=== PATIENT | male | born 1955 | race Caucasian/White ===

== ENCOUNTER → 2017-04-24 | Outpatient (CLI) | payer OTHER ==
[~2017-04-24] MED LIST: ACET500T68 PO; ALLO-2 PO; AMOX-362 PO; ASPI-1471 PO; BACL-1 PO; HYDR-4309 PO; IBUP-56 PO; LEVO-85 PO; LOR1 PO; MULT1TAB64 PO; OMEG-23 PO; ONDA8TAB94 PO; OXYC-865 PO; PEGFILGRASTIM 6 MG/0.6 ML SYR SUBQ ONE; PRED20TA6 PO; PROC10TA4 PO
[2017-04-24 14:59] VITALS: BP 133/88
== END ==
LOC: SPU 07:40
PROVIDERS: ATTEND Internal Medicine Hematology
DX: C83.10 Mantle cell lymphoma, unspecified site (principal)
CPT/HCPCS: 96372; J2505

== ENCOUNTER → 2017-05-12 | Outpatient (CLI) | payer OTHER ==
[~2017-05-12] MED LIST changes: +PEGFILGRASTIM 6 MG/0.6 ML KIT SUBQ ONE; -PEGFILGRASTIM 6 MG/0.6 ML SYR SUBQ ONE
== END ==
LOC: SPU 09:13
PROVIDERS: ATTEND Internal Medicine Hematology
DX: C83.10 Mantle cell lymphoma, unspecified site (principal)
CPT/HCPCS: 96372; J2505

== ENCOUNTER 2017-06-19 08:00 | Outpatient (RCR) | payer OTHER ==
[2017-03-30 15:27] VITALS: BP 107/72
--- NOTE | 2017-03-30 17:13 | ONC Progress Note - NP.Halsey ---
Patient History Date of Service Mar 30, 2017 Reason For Visit/HPI Patient is seen in the clinic today with his for education with R-Chop given every 42 days 3 cycles followed by Patrica with each cycle for his newly diagnosed mantle cell lymphoma. Patient will also receive inpatient chemotherapy on day 21 over in [place] 3 cycles. Patient then will go for a stem cell transplant. advisory services associate is seen with us today as well to answer many questions. Patient verbalized understanding. He reports that other then the surgery for his tonsils and the port placement he has no pain. He denies any night sweats or hot flashes, no fever or chills, no change in bowel or bladder function. He does have some increased fatigue. Oncology History Diego is 61 year old gentleman, with no significant past medical history, who noticed difficulty taking in a full breath about 1-2 weeks prior to presentation. On examination of himself, he looked into his mouth and noticed that his right tonsil was significantly enlarged. He presented to his PCP, and was subsequently referred to Dr James Alaniz (ENT) for further evaluation. CT neck was done on 02/24/2017 which showed enlargement of both palatine tonsils, right more than left and numerous, enlarged lymph nodes in the neck bilaterally , largest nodes included a left level VB node measuring 2.0 x 1.4 cm, a right level VB node measuring 1.7 x 1.7 cm, and a right level IIA node measuring 2.5 x 1.0 cm; bilateral axillary lymphadenopathy was also noted. He was taken to OR on 03/02/2017 and had bilateral tonsillectomy done. Final pathology revealed Mantle cell lymphoma in both tonsils, CD20+, cyclin D1+, BCL2+,CD5+, Ki67 20-30% . CD10-, BCL6-. He was subsequently referred to Medical Oncology for further management. Patient consult with Dr. hinojosa on 03/12/2017 to discuss diagnosis, staging, natural history of disease being incurable but certainly treatable, treatment options to include chemotherapy and stem cell transplant. Patient had echocardiogram and hepatitis studies completed prior. Echocardiogram was at 63% left ventricular ejection fraction. Hepatitis studies were negative. Port-A- Cath was placed. Medical History Family History: Patient reports no known family medical history. 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 CHEWS A CAN PER WEEK FOR 7 YEARS) Smoking Status: Former Smoker Exposure to Second Hand Smoke?: No When Quit Tobacco?: March 2016 Medications and Allergies Active Scripts Allopurinol (Allopurinol) 300 Mg Tablet, 300 MG PO DAILY, #30 TAB 9 Refills Prov:[facility], ONC 03/30/17 Lorazepam (LORAZEPAM) 1 Mg Tab, 1 TAB PO Q4-6H Y for nausea, #30 TAB 1 Refill Prov:CELESTE MCCLELLAN [facility]-, ONC 03/30/17 Ondansetron (ZOFRAN ODT) 8 Mg Tab.rapdis, 8 MG PO Q8H, #30 TAB 2 Refills Prov:CELESTE MCCLELLAN [facility]-, ONC 03/30/17 Prednisone (PREDNISONE) 20 Mg Tablet, 100 MG PO QDAY for 5 Days, #25 TAB 2 Refills Take 100mg orally on days 1-5 every 42 day cycle of chemotherapy Prov:CELESTE MCCLELLAN [facility]-, ONC 03/30/17 Hydrocodone Bit/Acetaminophen (NORCO 5-325 TABLET) 1 Each Tablet, 1 EACH PO Q4H Y for PAIN, #30 TAB Prov:KAYE PUENTES MD 03/17/17 Reported Medications Ibuprofen (IBUPROFEN) 200 Mg Tablet, 1 TAB PO Q6H Y for PAIN/HEADACHE, TAB 03/13/17 Multivitamin (MULTI VITAMIN DAILY) 1 Each Tablet, 1 EACH PO DAILY 03/12/17 Aspirin (ASPIR 81) 81 Mg Tablet.dr, 81 MG PO QDAY, TAB 03/12/17 [place]-3 Fatty Acids/Fish Oil (FISH OIL 1,000 MG SOFTGEL) 1 Each Capsule, 1 EACH PO TID, CAPSULE 03/12/17 Allergies: Coded Allergies: No Known Drug Allergies (Unverified , 02/24/17) Review of System/Physical Exam Review of Systems All Systems Reviewed/Normal: Yes, Except as Noted Hematologic: Positive for Fatigue Physical Exam Vital Signs Temperature: 98.6 Pulse: 78 BP Systolic: 107 BP Diastolic: 72 Respiratory Rate: 16 O2 SAT: 93 O2 Delivery: Height (inches) 71.00 Weight lb: 169 Weight oz: Weight Kg (Leon): Pain: 0 ECOG Score: 0 General: Stable, Well Developed, Well Nourished, Not In Acute Distress Psychiatric: Mood appears normal, Affect appears normal Chemo Education Chemotherapy Education: Patient is seen today for education regarding chemotherapy with R-Chop for his newly diagnosed mantle cell lymphoma. The treatment schedule and associated appointments were discussed and reviewed. A print out will be given to the patient. The intent for treatment is incurable although disease should be maintained. Consent for treatment was completed prior to receiving treatment. Mechanism of action and associated side effects of Rituxan, Adriamycin, Cytoxan , vincristine, and prednisone as well as premedications were discussed. The patient is at increased risk for infection related to bone marrow suppression with chemotherapy. Signs and symptoms of infection were reviewed with recommendation of calling the clinic if fever, chills or a temperature of 100.5 or greater is experienced. Regular monitoring of blood work will be completed. The patient is at increased risk of nausea and vomiting related to chemotherapy. Home antiemetics were reviewed with a schedule of when to take them. Script (s) for Zofran, prednisone, Ativan and allopurinol to [facility].. Increased bowel movements or diarrhea may occur. The use of Imodium was reviewed and encouraged to have on hand. Dehydration from decreased intake, nausea or diarrhea could also occur. Side effects of dehydration were reviewed and hydration will be given as needed. Self-care strategies to minimize any symptoms from treatment were taught and written material was given for further review at home. The strategies included: dietary modifications for nausea, diarrhea, fatigue and/or mouth sores, exercise and resting for fatigue, hydration for dehydration, and skin care for dry skin reactions. In addition, safety measures for IV chemotherapy to prevent teratogenic side effects to others was reviewed in detail to include good hand washing, double flushing, and what to do during sexual intercourse. Patient has been referred to physical therapy and dietary The above information will be reviewed with the patient and family members as needed. Assessment and Plan Assessment & Plan Mantle cell lymphoma: Patient completed education today by her to starting treatment with R CHOP tomorrow. Diagnosis, staging, natural history of disease, treatment with chemotherapy and stem cell transplant were reviewed today. Side effects of chemotherapy were reviewed and education book with all written material was given to patient for further review. A consent was signed consenting for treatment tomorrow. Prednisone 100 mg will be taken on days 1 through 5 with each cycle of chemotherapy. Patient also was also started on allopurinol 300 mg for tumor lysis prevention. Review of echocardiogram and hepatitis panel were completed today. Hepatitis panel is negative. Echocardiogram baseline is at 63% for left ventricular ejection fraction. Patient has met with Dr. [facility] at [facility] for initial consultation for autologous stem cell transplant. Patient will also receive inpatient chemotherapy starting on day 21 over in [place] directed by Dr. Luke. All questions were answered. Patient will be seen with each chemotherapy treatment. Labs will be drawn weekly according to chemotherapy schedule. Patient will contact us if he has questions or concerns. Home medications were [facility] in to [facility]. I personally spent a total of 45 minutes. Of that 40 minutes was counseling/ coordination of patient's care. See my note above for details. CELESTE MCCLELLAN [employer], ONC Mar 30, 2017 17:13
[2017-03-31 08:28] VITALS: BP 113/74
[2017-03-31] MEDS: PALONOSETRON 0.25 MG/5 ML VIAL IVP PRN (08:54)
[2017-03-31] MEDS: diphenhydrAMINE 50 MG/ML VIAL IVP PRN (08:55)
[2017-03-31] MEDS: NS(*) 0.9% 500 ML BAG 500 ML IV PRN (08:55)
[2017-03-31] MEDS: LIDOCAINE/SOD BICARB 8.4% SYR ID PRN (08:55)
[2017-03-31] MEDS: HEPARIN FLSH (PORT) 500 UN/5ML IVP PRN ×2 (08:56→16:16)
[2017-03-31] MEDS: ACETAMINOPHEN 325 MG TAB PO PRN (08:56)
[2017-03-31 16:11] VITALS: BP 117/70
[2017-04-07 11:10] LABS: PLATELET COUNT, AUTOMATED 166 K/uL (150-450)
--- NOTE | 2017-04-07 11:34 | ONC Progress Note - NP.Halsey ---
Patient History Date of Service Apr 07, 2017 Reason For Visit/HPI Patient is seen in the clinic today with his for lab draw status post cycle 1 of chemotherapy for his lymphoma with R-CHOP. Patient reports that he is having weakness and fatigue, bone aches in the lower extremities and tightness of the chest with voice changes, cough and a feeling of shortness of breath. Patient believes that symptoms started as soon as chemotherapy started and has increased over the last several days. With the steroids he feels that he has not been able to sleep well at night which is exacerbated his fatigue. He did take a pain pill last night and was able to sleep at least 4 hours at one time. Problem List (1) Chest tightness or pressure (2) Mantle cell lymphoma Oncology History Diego is 61 year old gentleman, with no significant past medical history, who noticed difficulty taking in a full breath about 1-2 weeks prior to presentation. On examination of himself, he looked into his mouth and noticed that his right tonsil was significantly enlarged. He presented to his PCP, and was subsequently referred to Dr James Alaniz (ENT) for further evaluation. CT neck was done on 02/24/2017 which showed enlargement of both palatine tonsils, right more than left and numerous, enlarged lymph nodes in the neck bilaterally , largest nodes included a left level VB node measuring 2.0 x 1.4 cm, a right level VB node measuring 1.7 x 1.7 cm, and a right level IIA node measuring 2.5 x 1.0 cm; bilateral axillary lymphadenopathy was also noted. He was taken to OR on 03/02/2017 and had bilateral tonsillectomy done. Final pathology revealed Mantle cell lymphoma in both tonsils, CD20+, cyclin D1+, BCL2+,CD5+, Ki67 20-30% . CD10-, BCL6-. He was subsequently referred to Medical Oncology for further management. Patient consult with Dr. hinojosa on 03/12/2017 to discuss diagnosis, staging, natural history of disease being incurable but certainly treatable, treatment options to include chemotherapy and stem cell transplant. Patient had echocardiogram and hepatitis studies completed prior. Echocardiogram was at 63% left ventricular ejection fraction. Hepatitis studies were negative. Port-A- Cath was placed. Medical History Family History: Patient reports no known family medical history. 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 Alcohol History He may drink a beer every 2-3 months Recreational Drug History He denies use Smoking History: No Smoking Status: Former Smoker Exposure to Second Hand Smoke?: No When Quit Tobacco?: March 2016 Medications and Allergies Active Scripts Levofloxacin 500 Mg Tab (LEVAQUIN 500 MG TAB) 500 Mg Tablet, 500 MG PO DAILY for 5 Days, #5 TAB Prov:CELESTE MCCLELLAN [facility]-, ONC 04/07/17 Allopurinol (Allopurinol) 300 Mg Tablet, 300 MG PO DAILY, #30 TAB 9 Refills Prov:CELESTE MCCLELLAN [facility]-, ONC 03/30/17 Lorazepam (LORAZEPAM) 1 Mg Tab, 1 TAB PO Q4-6H Y for nausea, #30 TAB 1 Refill Prov:CELESTE MCCLELLAN [facility], ONC 03/30/17 Ondansetron (ZOFRAN ODT) 8 Mg Tab.rapdis, 8 MG PO Q8H, #30 TAB 2 Refills Prov:CELESTE MCCLELLAN [facility], ONC 03/30/17 Prednisone (PREDNISONE) 20 Mg Tablet, 100 MG PO QDAY for 5 Days, #25 TAB 2 Refills Take 100mg orally on days 1-5 every 42 day cycle of chemotherapy Prov:CELESTE MCCLELLAN [facility], ONC 03/30/17 Hydrocodone Bit/Acetaminophen (NORCO 5-325 TABLET) 1 Each Tablet, 1 EACH PO Q4H Y for PAIN, #30 TAB Prov:KAYE PUENTES MD 03/17/17 Reported Medications Ibuprofen (IBUPROFEN) 200 Mg Tablet, 1 TAB PO Q6H Y for PAIN/HEADACHE, TAB 03/13/17 Multivitamin (MULTI VITAMIN DAILY) 1 Each Tablet, 1 EACH PO DAILY 03/12/17 Aspirin (ASPIR 81) 81 Mg Tablet.dr, 81 MG PO QDAY, TAB 03/12/17 [place]-3 Fatty Acids/Fish Oil (FISH OIL 1,000 MG SOFTGEL) 1 Each Capsule, 1 EACH PO TID, CAPSULE 03/12/17 Allergies: Coded Allergies: No Known Drug Allergies (Unverified , 02/24/17) Review of System/Physical Exam Review of Systems All Systems Reviewed/Normal: Yes, Except as Noted Respiratory: Positive for Shortness of Breath, Positive for Other HEENT: Sore Throat (rote discomfort status post tonsillectomy) Hematologic: Positive for Fatigue Musculoskeletal: Positive for Bone Pain (lower extremity bone pain probably related to Neulasta) Psychiatric: Anxiety, Depression Physical Exam Vital Signs Temperature: 97.6 Pulse: 81 BP Systolic: 117 BP Diastolic: 70 Respiratory Rate: 16 O2 SAT: 93 O2 Delivery: Height (inches) 71.00 Weight lb: 169 Weight oz: Weight Kg (Leon): Pain: 0 ECOG Score: 1 ( increased fatigue) General: Stable, Well Developed, Well Nourished, Not In Acute Distress HEENT: No Oral Thrush Lungs: Clear to Auscultation Psychiatric: Mood appears normal, Affect appears normal (patient is stressed and it is apparent that he does not feel well. His is with him today and is very supportive) Diagnostic Studies Diagnostic Studies Laboratory Absolute neutrophil count is calculated at 532. Patient has Neulasta status post chemotherapy. Item Value Date Time White Blood Count 1.4 k/uL *L 04/07/17 1103 Hemoglobin 13.5 g/dL L 04/07/17 1103 Hematocrit 39.3 % L 04/07/17 1103 Neutrophils % (Manual) 31 % L 04/07/17 1103 Band Neutrophils % 7 % 04/07/17 1103 Sodium Level 136 mmol/L L 04/07/17 1103 Random Glucose 134 mg/dl H 04/07/17 1103 Laboratory Tests 03/31/17 08:15: Phosphorus Level 3.8 04/07/17 11:03: Assessment and Plan Assessment & Plan Mantle cell lymphoma: Patient completed education today by her to starting treatment with R CHOP tomorrow. Diagnosis, staging, natural history of disease, treatment with chemotherapy and stem cell transplant were reviewed today. Side effects of chemotherapy were reviewed and education book with all written material was given to patient for further review. A consent was signed consenting for treatment tomorrow. Prednisone 100 mg will be taken on days 1 through 5 with each cycle of chemotherapy. Patient also was also started on allopurinol 300 mg for tumor lysis prevention. Review of echocardiogram and hepatitis panel were completed today. Hepatitis panel is negative. Echocardiogram baseline is at 63% for left ventricular ejection fraction. Patient has met with Dr. Johnson at [facility] for initial consultation for autologous stem cell transplant. Patient will also receive inpatient chemotherapy starting on day 21 over in [place] directed by Dr. Luke. Patient is seen today in the clinic status post lab draw with concern of increased shortness of breath and voice changes. Patient is also having expected side effects of own aches from Neulasta therapy and increased fatigue. Chest x-ray PA and lateral was ordered for further evaluation. Chest x-ray is positive for small bilateral pleural effusions which appear increased when compared to previous CT scan. Patient will be called with results. Absolute neutrophil count is 532 today. Neulasta should raise this white count in the next several days. Patient has completed oral steroid status post treatment and denies any nausea today. I will treat patient prophylactically with Levaquin 500 mg 5 days. Patient will call if his symptoms do not improve as I could also start him on a nebulizer treatment. He agreed with this plan of care and will avoid crowds and practice good hand washing. He will call if he develops fever or chills. Patient to follow as scheduled with chemotherapy on day [address] [place] [address] Luke. I personally spent a total of 20 minutes. Of that 20 minutes was counseling/ coordination of patient's care. See my note above for details. CELESTE MCCLELLAN [employer]-BC, ONC Apr 07, 2017 11:34
--- NOTE | 2017-04-07 12:05 | RADIOLOGY IMAGING REPORT ---
FACILITY: [facility] [place] PATIENT NAME: Houston Thurman : 1955 MR: [id number] V: [id number] EXAM DATE: ORDERING PHYSICIAN: CELESTE MCCLELLAN TECHNOLOGIST: Location: [facility] Patient: Houston Thurman : 1955 Visit/Account:[id number] Date of Sevice: 04/07/2017 Exam type: CHEST PA AND LAT History: Lymphoma, shortness of breath, chest pain x2 days Comparison: Chest PA and lateral June 02, [address] chest seven pelvis March 11, 2017 Findings: There has been development of small bilateral pleural effusions. These appear slightly increased whe n compared to the prior CT. No underlying airspace consolidation is seen. There is an increased AP diameter the chest which can be seen with COPD. Cardiac silhouette is normal in size. The trachea is midline. A right IJ port with the distal tip projecting at the aortocaval junction.. IMPRESSION: 1. Small bilateral pleural effusions slightly increased when compared the prior study A message was left for CELESTE MCCLELLAN at 04/07/2017 11:59 AM. Report Dictated By: Deborah Chaidez MD at 04/07/2017 11:56 AM Report E-Signed By: Deborah Chaidez MD at 04/07/2017 12:00 PM WSN:[email or web address]
[2017-04-10 15:35] VITALS: BP 108/67
[2017-04-14 11:09] LABS: PLATELET COUNT, AUTOMATED 187 K/uL (150-450)
--- NOTE | 2017-04-19 05:16 | ONCOLOGY FOLLOW UP NOTE ---
EVENT DATE: April 10, 2017 DIAGNOSES Mantle cell lymphoma lymph nodes of multiple regions CHIEF COMPLAINT Patient is here today for followup of his mantle cell lymphoma on chemotherapy. HEMATOLOGY/ONCOLOGY HISTORY Patient is a 61 year old male who presented with difficulty talking in a full breath and found enlargement of his right tonsil. CT neck on 02/24/17 showed enlargement both palatine tonsils R> L with nuerous enlarged neck LNs B/L with B/L axillary LNs noted. He had B/L tonsillectomy done on 03/02/17 and pathology mantle cell lyphoma involving both tonsils. His echocardiogram showed normal LVEF at 63%. BM aspiration and biopsy done on 03/17/17 was involved by MCL (approximately 40% of cells). PET?CT scan done on 03/24/17 showed mild diffuse lymphadenopathy in the neck, chest, abdomen and pelvis with mild thyromegaly and uptake at the base of the penis. Patient has been evaluated by Dr. Johnson at [facility] with recommendation of alternating chemotherapy with R-CHOP with R-DHAP chemotherapy with intrathecal prophylaxis chemotherapy. Patient started treatment with R-CHOP on March 31, 2017. PAST MEDICAL HISTORY Lymphoma. mantel cell multiple sites Malignant neoplasm PAST SURGICAL HISTORY Mediport placement Orife elbow fracture Orif tibia & fibula fractures Tonsillectomy FAMILY HISTORY The patients father, paternal aunt and maternal grandfather have a history of cancer. SOCIAL HISTORY Patient is , has three children and grandchildren. 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 He drinks a beer every two to three months. Denies any abuse of illicit drugs. He smoked one pack per week for 30 years, and chewed a can per week for seven years, but he quit tobacco in March 2016. CURRENT MEDICATIONS 1. Allopurinol 300 mg daily. 2. Lorazepam 1 mg q.4-6 hourly p.r.n. for anxiety or nausea and vomiting. 3. Zofran 8 mg p.o. q.8 hourly p.r.n. for nausea and vomiting. 4. [place] 5/325 one tablet q.4 hourly p.r.n. for pain. 5. Multivitamin s. 6. Aspirin 81 mg daily. 7. [place]-3 fatty acids/fish oil, one capsule three times daily. ALLERGIES No known drug allergies. HISTORY OF PRESENT ILLNESS Patient is here today for followup of his mantle cell lymphoma on chemotherapy. He received his first chemotherapy with R-CHOP on March 31, 2017. He is complaining of occasional headache and he has epigastric discomfort since he started his chemotherapy, which is related most probably to his high dose prednisone. REVIEW OF SYSTEMS CONSTITUTIONAL: No appetite or weight change. No fever, chills or sweating. No recent infection. HEENT: Ears: No tinnitus or hearing problem. Nose: No nasal discharge or epistaxis. Throat: No sore throat or mouth ulcers. Eyes: No diplopia or visual changes. RESPIRATORY: No shortness of breath. No cough, expectoration or hemoptysis. CARDIOVASCULAR: No chest pain, orthopnea, or paroxysmal nocturnal dyspnea (PND) . No edema. No palpitations. GASTROINTESTINAL: Patient has epigastric discomfort and pain. He has also constipation. GENITOURINARY: No hematuria or dysuria. MUSCULOSKELETAL: No pain in the muscles, joints or bones. NEUROLOGICAL: He has occasional headache. HEMATOLOGIC/LYMPHATIC: No bleeding or easy bruising. No weakness or fatigue. No enlarged lymph nodes. SKIN: No skin rash or lumps. PSYCHIATRIC: No anxiety or depression. PHYSICAL EXAMINATION GENERAL: Looks stable. Well-developed, well-nourished, and in no acute distress. VITAL SIGNS: Blood pressure 103/67, pulse 90 per minute, temperature 99.7, pulse ox 92% on room air. HEENT: Head: Atraumatic. No sinus tenderness to palpation. Eyes: No icterus or conjunctivitis. Mouth and throat: No oral thrush or mucositis. NECK: There are palpable some posterior cervical lymph nodes the size of 1.5 cm bilaterally on the neck. Supple. No cervical or supraclavicular lymphadenopathy. LUNGS: Clear to auscultation and percussion bilaterally. HEART: Regular rate and rhythm. No gallops, murmurs, clicks or rubs. ABDOMEN: Soft and lax. No tenderness. No hepatosplenomegaly. No masses. EXTREMITIES: No cyanosis, clubbing or edema. LYMPHATICS: No peripheral lymphadenopathy. NEUROLOGICAL: Conscious, alert and oriented times three. No focal motor or sensory deficits. PSYCHIATRIC: Mood and affect appear normal. SKIN: No skin rash, bruise or purpuric eruption. ASSESSMENT 1. Mantle cell lymphoma. Patient has been evaluated at [facility]. The recommendation is to treat him with four cycles of R-CHOP alternating with R-DHAP, and he will have stem cell collection after that. He saw Dr. Johnson. He started chemotherapy with R-CHOP on March 31, 2017. He tolerated the first dose very well, except for having leukopenia with neutropenia from that. At the [facility] they recommended intrathecal prophylaxis for central nervous system lymphoma, and the patient refused intrathecal route. I talked to him today about the Ommaya reservoir, and the patient looks like he is not keen to do that. I am planning to admit him to the hospital in [place] on April 21 to start his second cycle with DHAP with cisplatin and high dose Katlyn-C. I talked to them about the plan of the treatment and the patient is agreeable with such plan. 2. Chemotherapy-induced leukopenia and neutropenia. Patient received already Neulasta. The patient was advised about neutropenic precautions. We will continue to monitor. PLAN 1. Admission to [facility] on April 21, 2017 for treatment with second cycle of R-DHAP. 2. Protonix 40 mg daily. 3. CBC, chem panel and uric acid weekly. 4. Neulasta 6 mg subcutaneously after the next cycle of chemotherapy on April 24, 2017. 5. Patient to return in three weeks after the next cycle of chemotherapy with CBC, chem panel, LDH, uric acid prior to his third cycle with R-CHOP. 6. Patient is to contact us for any new concerns or complaints. MTDD
[2017-04-28 11:09] LABS: PLATELET COUNT, AUTOMATED 138 K/uL (150-450)
[2017-04-28] MEDS: HEPARIN FLSH (PORT) 500 UN/5ML IVP PRN ×2 (13:09→14:31)
[2017-04-28] MEDS: LIDOCAINE/SOD BICARB 8.4% SYR ID PRN (13:09)
[2017-04-28] MEDS: NS(*) 0.9% 1000 ML BAG 1,000 ML IV PRN (13:09)
[2017-04-28 13:15] VITALS: BP 118/83
[2017-04-28 14:36] VITALS: BP 122/76
[2017-04-29] MEDS: NS(*) 0.9% 1000 ML BAG 1,000 ML IV PRN (13:31)
[2017-04-29 13:43] VITALS: BP 152/85
[2017-04-29] MEDS: LIDOCAINE/SOD BICARB 8.4% SYR ID PRN (13:52)
[2017-04-29] MEDS: HEPARIN FLSH (PORT) 500 UN/5ML IVP PRN (13:52)
[2017-04-30] MEDS: NS(*) 0.9% 1000 ML BAG 1,000 ML IV PRN (13:12)
[2017-04-30] MEDS: HEPARIN FLSH (PORT) 500 UN/5ML IVP PRN (13:12)
[2017-04-30] MEDS: LIDOCAINE/SOD BICARB 8.4% SYR ID PRN (13:12)
[2017-04-30 14:47] VITALS: BP 147/85
[2017-05-01 13:06] VITALS: BP 120/81
[2017-05-01 13:45] LABS: PLATELET COUNT, AUTOMATED 42 K/uL (150-450)
[2017-05-07] MEDS: NS 0.9% IV PRN ×2 (10:32→11:58)
[2017-05-07] MEDS: HEPARIN FLSH (PORT) 500 UN/5ML IVP PRN (10:33)
[2017-05-07] MEDS: LIDOCAINE/SOD BICARB 8.4% SYR ID PRN (10:33)
[2017-05-07 10:34] VITALS: BP 116/88
[2017-05-09] MEDS: HEPARIN FLSH (PORT) 500 UN/5ML IVP PRN (08:06)
[2017-05-09] MEDS: LIDOCAINE/SOD BICARB 8.4% SYR ID PRN (08:06)
[2017-05-09] MEDS: NS 0.9% IV PRN (08:06)
[2017-05-10] MEDS: HEPARIN FLSH (PORT) 500 UN/5ML IVP PRN (08:21)
[2017-05-10] MEDS: NS 0.9% IV PRN (08:22)
[2017-05-10] MEDS: LIDOCAINE/SOD BICARB 8.4% SYR ID PRN (08:22)
[2017-05-11 12:51] VITALS: BP 133/77
[2017-05-11] MEDS: LIDOCAINE/SOD BICARB 8.4% SYR ID PRN (12:54)
[2017-05-12 08:20] VITALS: BP 121/75
[2017-05-12] MEDS: diphenhydrAMINE 50 MG/ML VIAL IVP PRN (08:59)
[2017-05-12] MEDS: PALONOSETRON 0.25 MG/5 ML VIAL IVP PRN (08:59)
[2017-05-12] MEDS: HEPARIN FLSH (PORT) 500 UN/5ML IVP PRN (09:00)
[2017-05-12] MEDS: NS(*) 0.9% 500 ML BAG 500 ML IV PRN (09:00)
[2017-05-12] MEDS: ACETAMINOPHEN 325 MG TAB PO PRN (09:00)
[2017-05-13] MEDS: NS(*) 0.9% 1000 ML BAG 1,000 ML IV PRN (11:01)
[2017-05-13] MEDS: HEPARIN FLSH (PORT) 500 UN/5ML IVP PRN (11:03)
[2017-05-13 11:28] VITALS: BP 122/83
[2017-05-14] MEDS: NS(*) 0.9% 1000 ML BAG 1,000 ML IV PRN (11:05)
[2017-05-14] MEDS: LIDOCAINE/SOD BICARB 8.4% SYR ID PRN (11:05)
[2017-05-14 11:06] VITALS: BP 135/80
[2017-05-15] MEDS: NS(*) 0.9% 1000 ML BAG 1,000 ML IV PRN (11:03)
[2017-05-15] MEDS: HEPARIN FLSH (PORT) 500 UN/5ML IVP PRN (11:03)
[2017-05-16] MEDS: NS(*) 0.9% 1000 ML BAG 1,000 ML IV PRN (08:30)
[2017-05-16 08:31] VITALS: BP 147/87
[2017-05-16] MEDS: HEPARIN FLSH (PORT) 500 UN/5ML IVP PRN (08:31)
--- NOTE | 2017-05-16 16:35 | ONCOLOGY FOLLOW UP NOTE ---
EVENT DATE: May 15, 2017 DIAGNOSES Mantle cell lymphoma lymph nodes of multiple regions CHIEF COMPLAINT Patient is here today for followup of his mantle cell lymphoma on chemotherapy. HEMATOLOGY HISTORY Patient is a 61 year old male who presented with difficulty talking in a full breath and found enlargement of his right tonsil. CT neck on 02/24/17 showed enlargement both palatine tonsils R> L with nuerous enlarged neck LNs B/L with B/L axillary LNs noted. He had B/L tonsillectomy done on 03/02/17 and pathology mantle cell lyphoma involving both tonsils. His echocardiogram showed normal LVEF at 63%. BM aspiration and biopsy done on 03/17/17 was involved by MCL (approximately 40% of cells). PET?CT scan done on 03/24/17 showed mild diffuse lymphadenopathy in the neck, chest, abdomen and pelvis with mild thyromegaly and uptake at the base of the penis. Patient has been evaluated by Dr. Johnson at [facility] with recommendation of alternating chemotherapy with R-CHOP with R-DHAP chemotherapy with intrathecal prophylaxis chemotherapy. Patient started treatment with R-CHOP on March 31, 2017. HISTORY OF PRESENT ILLNESS Patient is here today for followup of his mantle cell lymphoma on chemotherapy pending autologous stem cell transplant. He is doing fine currently. He is complaining of constipation, but it is under control with the stool softeners currently. He is weak, tired and fatigued, but other than that he is really doing fine currently. He is receiving IV fluids nearly on a daily basis for his acute kidney injury from his cisplatin therapy. PAST MEDICAL HISTORY Lymphoma. mantel cell multiple sites Malignant neoplasm PAST SURGICAL HISTORY Mediport placement Orife elbow fracture Orif tibia & fibula fractures Tonsillectomy FAMILY HISTORY The patients father, paternal aunt and maternal grandfather have a history of cancer. SOCIAL HISTORY Patient is , has three children and grandchildren. 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 He drinks a beer every two to three months. Denies any abuse of illicit drugs. He smoked one pack per week for 30 years, and chewed a can per week for seven years, but he quit tobacco in March 2016. CURRENT MEDICATIONS 1. Allopurinol 300 mg daily. 2. Lorazepam 1 mg q.4-6 hourly p.r.n. for anxiety or nausea and vomiting. 3. Zofran 8 mg p.o. q.8 hourly p.r.n. for nausea and vomiting. 4. [place] 5/325 one tablet q.4 hourly p.r.n. for pain. 5. Multivitamin s. 6. Aspirin 81 mg daily. 7. [place]-3 fatty acids/fish oil, one capsule three times daily. ALLERGIES No known drug allergies. REVIEW OF SYSTEMS CONSTITUTIONAL: No appetite or weight change. No fever, chills or sweating. No recent infection. HEENT: Ears: No tinnitus or hearing problem. Nose: No nasal discharge or epistaxis. Throat: No sore throat or mouth ulcers. Eyes: No diplopia or visual changes. RESPIRATORY: No shortness of breath. No cough, expectoration or hemoptysis. CARDIOVASCULAR: No chest pain, orthopnea, or paroxysmal nocturnal dyspnea (PND) . No edema. No palpitations. GASTROINTESTINAL: Patient has constipation, under control with stool softeners. GENITOURINARY: No hematuria or dysuria. MUSCULOSKELETAL: No pain in the muscles, joints or bones. NEUROLOGICAL: He has occasional headache. HEMATOLOGIC/LYMPHATIC: He is weak, tired and fatigued. SKIN: No skin rash or lumps. PSYCHIATRIC: No anxiety or depression. PHYSICAL EXAMINATION GENERAL: Looks stable. Well-developed, well-nourished, and in no acute distress. VITAL SIGNS: Blood pressure 124/75, pulse 79 per minute, temperature 96.6, pulse ox 93% on room air. HEENT: Head: Atraumatic. No sinus tenderness to palpation. Eyes: No icterus or conjunctivitis. Mouth and throat: No oral thrush or mucositis. NECK: There are small palpable posterior cervical lymph nodes about 1 cm bilaterally on the neck. Supple. No cervical or supraclavicular lymphadenopathy. LUNGS: Clear to auscultation and percussion bilaterally. HEART: Regular rate and rhythm. No gallops, murmurs, clicks or rubs. ABDOMEN: Soft and lax. No tenderness. No hepatosplenomegaly. No masses. EXTREMITIES: No cyanosis, clubbing or edema. LYMPHATICS: No peripheral lymphadenopathy. NEUROLOGICAL: Conscious, alert and oriented times three. No focal motor or sensory deficits. PSYCHIATRIC: Mood and affect appear normal. SKIN: No skin rash, bruise or purpuric eruption. DIAGNOSTIC DATA CBC showed white count 9.2, hemoglobin 11.3, hematocrit 32.3, platelets 436, 000. Chem panel totally normal except BUN 31, creatine 1.7, blood sugar 130, calcium 8.3. Other parameters are normal. ASSESSMENT 1. Mantle cell lymphoma. Patient has been evaluated at [facility]. The recommendation is to treat him with four cycles of R-CHOP alternating with R-DHAP, and he will have stem cell collection after that. Patient has been seen by Dr. Johnson. He started chemotherapy with R-CHOP on March 31, 2017 and he tolerated treatment very well. He received his second cycle with DHAP regimen and he developed acute kidney injury with creatine 5 after that cycle of chemotherapy. He is currently on IV fluids nearly on a daily basis and he was admitted with the acute kidney injury and his current creatinine is 1.7 down from 5. I am planning to continue the IV fluids on a daily basis. Patient will be admitted on June 02, 2017 to receive his fourth cycle of DHAP regimen, but without cisplatin and instead of cisplatin the patient will receive oxaliplatin according to the clinical trial which is done which shows similar efficacy and better tolerance for people who develop kidney injury after cisplatin therapy. His PET CT scan after two cycles of chemotherapy showed nearly complete response with no hyperactive lymph nodes anymore. Patient refused intrathecal chemotherapy. He was offered also an Ommaya reservoir for that, but he also refused that option. After this cycle which will be the fourth cycle of chemotherapy, patient will have PET/CT scan within two weeks after the chemotherapy and he will receive Neulasta on the June 05, 2017. Patient was advised to contact the coordinator at the [facility] to know when he will be ready for his bone marrow aspiration biopsy prior to his stem cell collection. 2. Chemotherapy-induced anemia. Current hemoglobin 11.3 I will consider blood transfusion if the hemoglobin drops below 8 g/dL. 3. Acute kidney injury after cisplatin therapy, with creatinine rise to 5, but his current creatinine is 1.7. I am planning to continue IV fluids currently. PLAN 1. Chemotherapy with Oxaliplatin high dose ARC to be received in [place] on June 02, 2017. 2. CBC, chem panel and uric acid to be checked weekly. 3. Neulasta 6 mg subcutaneously to be given on June 05, 2017. 4. PET CT scan to be done two weeks after his next cycle of chemotherapy. 5. Patient to return in three weeks after this cycle of chemotherapy with CBC, chem panel, LDH, uric acid. 6. Patient is to contact the coordinator for the bone marrow transplant center at the [facility] to know his schedule for the bone marrow biopsy and the stem cell collection. 7. Continue IV hydration on daily basis. 8. Patient to contact us for any new concerns or complaints. MTDD
[2017-05-17] MEDS: NS(*) 0.9% 1000 ML BAG 1,000 ML IV PRN (08:23)
[2017-05-17] MEDS: HEPARIN FLSH (PORT) 500 UN/5ML IVP PRN (08:24)
[2017-05-17 08:27] VITALS: BP 139/85
[2017-05-19 10:57] VITALS: BP 138/87
[2017-05-19 11:03] LABS: PLATELET COUNT, AUTOMATED 199 K/uL (150-450)
[2017-05-19] MEDS: NS(*) 0.9% 1000 ML BAG 1,000 ML IV PRN (11:29)
[2017-05-19] MEDS: LIDOCAINE/SOD BICARB 8.4% SYR ID PRN (11:29)
[2017-05-20] MEDS: NS(*) 0.9% 1000 ML BAG 1,000 ML IV PRN (14:00)
[2017-05-20 15:21] VITALS: BP 139/81
[2017-05-21] MEDS: NS(*) 0.9% 1000 ML BAG 1,000 ML IV PRN (14:12)
[2017-05-21] MEDS: HEPARIN FLSH (PORT) 500 UN/5ML IVP PRN (14:12)
[2017-05-22] MEDS: NS(*) 0.9% 1000 ML BAG 1,000 ML IV PRN (14:00)
[2017-05-22 17:21] VITALS: BP 132/84
[2017-05-25] MEDS: NS(*) 0.9% 1000 ML BAG 1,000 ML IV PRN ×2 (10:03→12:12)
[2017-05-25] MEDS: HEPARIN FLSH (PORT) 500 UN/5ML IVP PRN ×2 (10:04→13:32)
[2017-05-25] MEDS: LIDOCAINE/SOD BICARB 8.4% SYR ID PRN (10:04)
[2017-05-25 10:05] VITALS: BP 132/84
[2017-05-26] MEDS: NS(*) 0.9% 1000 ML BAG 1,000 ML IV PRN ×2 (09:57→12:05)
[2017-05-26 14:05] VITALS: BP 132/84
[2017-05-27 09:55] VITALS: BP 154/92
[2017-05-27] MEDS: NS(*) 0.9% 1000 ML BAG 1,000 ML IV PRN ×2 (09:55→11:47)
[2017-05-27] MEDS: HEPARIN FLSH (PORT) 500 UN/5ML IVP PRN (14:42)
[2017-05-28 10:02] VITALS: BP 148/88
[2017-05-28] MEDS: NS(*) 0.9% 1000 ML BAG 1,000 ML IV PRN ×2 (10:02→12:45)
[2017-05-28] MEDS: HEPARIN FLSH (PORT) 500 UN/5ML IVP PRN (13:35)
[2017-05-29] MEDS: NS(*) 0.9% 1000 ML BAG 1,000 ML IV PRN (10:00)
[2017-05-29 10:04] VITALS: BP 147/87
[2017-05-29 10:12] LABS: PLATELET COUNT, AUTOMATED 144 K/uL (150-450)
[2017-05-29] MEDS: HEPARIN FLSH (PORT) 500 UN/5ML IVP PRN (13:30)
[2017-06-09 11:19] LABS: PLATELET COUNT, AUTOMATED 153 K/uL (150-450)
[2017-06-09 12:03] VITALS: BP 133/80
[2017-06-09] MEDS: LIDOCAINE/SOD BICARB 8.4% SYR ID PRN (12:06)
[2017-06-09] MEDS: NS(*) 0.9% 1000 ML BAG 1,000 ML IV PRN ×2 (12:09→14:01)
--- NOTE | 2017-06-09 12:44 | ONC Progress Note - NP.Halsey ---
Patient History Date of Service Jun 09, 2017 Reason For Visit/HPI Patient presents to the clinic today for follow-up lab work post completion of chemotherapy at [facility] inpatient facility. He reports that he was discharged on Thursday. Today he is not feeling well, he is experiencing some mild fatigue and significant chemo fog. He denies any fever or chills, no shortness of breath, nausea or vomiting, diarrhea or constipation. Patient is eating fairly well and is trying to drink plenty of fluids. Patient shares that he received oxaliplatin therapy and was not told that the side effects of the paresthesia related to any cold products. Patient is currently having difficulty swallowing cold fluids and touching cold objects. He is currently having difficulty with any contact with cold products. Patient's white cell count is elevated. Patient did receive Neulasta 2 days ago. Problem List (1) Mantle cell lymphoma Oncology History Diego is 61 year old gentleman, with no significant past medical history, who noticed difficulty taking in a full breath about 1-2 weeks prior to presentation. On examination of himself, he looked into his mouth and noticed that his right tonsil was significantly enlarged. He presented to his PCP, and was subsequently referred to Dr James Alaniz (ENT) for further evaluation. CT neck was done on 02/24/2017 which showed enlargement of both palatine tonsils, right more than left and numerous, enlarged lymph nodes in the neck bilaterally , largest nodes included a left level VB node measuring 2.0 x 1.4 cm, a right level VB node measuring 1.7 x 1.7 cm, and a right level IIA node measuring 2.5 x 1.0 cm; bilateral axillary lymphadenopathy was also noted. He was taken to OR on 03/02/2017 and had bilateral tonsillectomy done. Final pathology revealed Mantle cell lymphoma in both tonsils, CD20+, cyclin D1+, BCL2+,CD5+, Ki67 20-30% . CD10-, BCL6-. He was subsequently referred to Medical Oncology for further management. Patient consult with Dr. hinojosa on 03/12/2017 to discuss diagnosis, staging, natural history of disease being incurable but certainly treatable, treatment options to include chemotherapy and stem cell transplant. Patient had echocardiogram and hepatitis studies completed prior. Echocardiogram was at 63% left ventricular ejection fraction. Hepatitis studies were negative. Port-A- Cath was placed. Medical History Family History: Patient reports no known family medical history. 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 Alcohol History He may drink a beer every 2-3 months Recreational Drug History He denies use Smoking History: Yes Smoking Status: Former Smoker Exposure to Second Hand Smoke?: No When Quit Tobacco?: 6 WEEKS AGO Medications and Allergies Active Scripts Prochlorperazine Maleate (Compazine) 10 Mg Tablet, 10 MG PO Q6H, #30 TAB 3 Refills Prov:CELESTE MCCLELLAN [facility], ONC 04/28/17 Baclofen (BACLOFEN) 10 Mg Tablet, 10 MG PO TID Y for HICCUPS, #30 TAB 1 Refill Prov:CELESTE MCCLELLAN [facility], ONC 04/24/17 Levofloxacin 500 Mg Tab (LEVAQUIN 500 MG TAB) 500 Mg Tablet, 500 MG PO DAILY for 5 Days, #5 TAB Prov:CELESTE MCCLELLAN [facility], ONC 04/07/17 Allopurinol (Allopurinol) 300 Mg Tablet, 300 MG PO DAILY, #30 TAB 9 Refills Prov:CELESTE MCCLLELAN [facility], ONC 03/30/17 Lorazepam (LORAZEPAM) 1 Mg Tab, 1 TAB PO Q4-6H Y for nausea, #30 TAB 1 Refill Prov:CELESTE MCCLELLAN [facility], ONC 03/30/17 Ondansetron (ZOFRAN ODT) 8 Mg Tab.rapdis, 8 MG PO Q8H, #30 TAB 2 Refills Prov:CELESTE MCCLELLAN [facility], ONC 03/30/17 Prednisone (PREDNISONE) 20 Mg Tablet, 100 MG PO QDAY for 5 Days, #25 TAB 2 Refills Take 100mg orally on days 1-5 every 42 day cycle of chemotherapy Prov:CELESTE MCCLELLAN [facility], ONC 03/30/17 Reported Medications Ibuprofen (IBUPROFEN) 200 Mg Tablet, 1 TAB PO Q6H Y for PAIN/HEADACHE, TAB 03/13/17 Multivitamin (MULTI VITAMIN DAILY) 1 Each Tablet, 1 EACH PO DAILY 03/12/17 Aspirin (ASPIR 81) 81 Mg Tablet.dr, 81 MG PO QDAY, TAB 03/12/17 [place]-3 Fatty Acids/Fish Oil (FISH OIL 1,000 MG SOFTGEL) 1 Each Capsule, 1 EACH PO TID, CAPSULE 03/12/17 Allergies: Coded Allergies: No Known Drug Allergies (Unverified , 02/24/17) Review of System/Physical Exam Review of Systems All Systems Reviewed/Normal: Yes, Except as Noted Hematologic: Positive for Fatigue (rated a 3) Neurologic: Numbness of Hands, Numbness of Feet, Other (pain with contact with cold products from oxaliplatin therapy) Psychiatric: Anxiety Physical Exam Vital Signs Temperature: 96.8 Pulse: 82 BP Systolic: 133 BP Diastolic: 80 Respiratory Rate: 16 O2 SAT: 96 O2 Delivery: Height (inches) 71.00 Weight lb: 169 Weight oz: Weight Kg (Leon): [phone] Pain: 0 General: Stable, Well Developed, Well Nourished HEENT: No Trauma, No Conjunctivitis, No Mucositis, No Oral Thrush Neck: Supple Lungs: Clear to Auscultation Heart: Regular Rate, Regular Rhythm, No Gallops Abdomen: Soft and Nontender, No Hepatosplenomegaly, No Masses Extremities: No Cyanosis, No Clubbing, No Edema Lymphadenopathy: No Cervical Psychiatric: Mood appears normal, Affect appears normal Skin: No Skin Rashes, No Bruising, No Purpura Diagnostic Studies Diagnostic Studies Laboratory Item Value Date Time Creatinine 1.50 mg/dl H 05/29/17 0958 Creatinine 1.90 mg/dl H 05/22/17 1410 Creatinine 1.70 mg/dl H 05/19/17 1100 Creatinine 1.70 mg/dl H 05/15/17 1100 Laboratory Tests 06/09/17 10:53 Laboratory Tests 04/07/17 11:03: Neutrophils % (Manual) 31, Band Neutrophils % 7, Lymphocytes % (Manual) 24, Atypical Lymphocytes % 1, Monocytes % (Manual) 14, Eosinophils % (Manual) 18, Basophils % (Manual) 2, Metamyelocytes % 1, Myelocytes % 1, Promyelocytes % 1 05/29/17 09:58: Phosphorus Level 4.3 06/09/17 10:53: White Blood Count 34.3, Red Blood Count 3.30, Hemoglobin 10.0, Hematocrit 29.2, Mean Corpuscular Volume 88.4, Mean Corpuscular Hemoglobin 30.1, Mean Corpuscular Hemoglobin Concent 34.1, Red Cell Distribution Width 18.9, Platelet Count 153, Mean Platelet Volume 6.8, Neutrophils (%) (Auto) 98.4, Lymphocytes (% ) (Auto) 0.6, Monocytes (%) (Auto) 0.9, Eosinophils (%) (Auto) 0.0, Basophils (% ) (Auto) 0.1, Nucleated RBC Relative Count (auto) 0.0, Neutrophils # (Auto) 33.8 , Lymphocytes # (Auto) 0.2, Monocytes # (Auto) 0.3, Eosinophils # (Auto) 0.0, Basophils # (Auto) 0.0, Nucleated RBC Absolute Count (auto) 0.00, Peripheral Blood Smear Yes, Sodium Level 137, Potassium Level 4.2, Chloride Level 99, Carbon Dioxide Level 26, Blood Urea Nitrogen 36, Creatinine 1.60, Glomerular Filtration Rate Calc 44.3, Random Glucose 88, Uric Acid 4.3, Calcium Level 9.2, Total Bilirubin 0.5, Aspartate Amino Transf (AST/SGOT) 26, Alanine Aminotransferase (ALT/SGPT) 33, Alkaline Phosphatase 89, Lactate Dehydrogenase 422, Total Protein 6.9, Albumin 4.0 Assessment and Plan Assessment & Plan ASSESSMENT 1. Mantle cell lymphoma. Patient has been evaluated at [facility]. The recommendation is to treat him with four cycles of R-CHOP alternating with R-DHAP, and he will have stem cell collection after that. Patient has been seen by Dr. Johnson. He started chemotherapy with R-CHOP on March 31, 2017 and he tolerated treatment very well. He received his second cycle with DHAP regimen and he developed acute kidney injury with an elevated creatinine level of 5. He has been maintained on IV fluids almost daily and he was admitted with the acute kidney injury and his current creatinine is 1.7 down from 5. Patient was admitted on June 02, 2017 to receive his fourth cycle of DHAP regimen, without cisplatin, he received oxaliplatin according to the clinical trial which is done which shows similar efficacy and better tolerance for people who develop kidney injury after cisplatin therapy. His PET CT scan after two cycles of chemotherapy showed nearly complete response with no hyperactive lymph nodes. Patient refused intrathecal chemotherapy. He was offered also an O[place]aya reservoir for that, but he also refused that option. He is scheduled to complete a PET/CT scan on June 22 and bone marrow biopsy and will follow with Dr. Johnson at the [facility] to determine a date of his stem cell collection. 2. Chemotherapy-induced anemia. Current hemoglobin 10.0 I will consider blood transfusion if the hemoglobin drops below 8 g/dL. 3. Acute kidney injury after cisplatin therapy, with creatinine elevation to 5 , but his current creatinine is 1.7. I will hydrate with fluids this week and repeat a creatine level on Thursday. Patient is scheduled to follow with the trainman tomorrow over in [place] 4. Neuropathy post oxaliplatin. Patient is educated to avoid cold products for several days post oxaliplatin treatment and that usually the paraesthesia resolves and he will be able to drink cold fluids again and touch cold objects. 5. Leukocytosis. Patient's current white cell count is 34.3. He did have Neulasta 2 days ago and is asymptomatic. I will repeat a CBC later this week for continued evaluation. PLAN 1. Chemotherapy with Oxaliplatin high dose ARC completed in [place] on June 02, 2017. 2. CBC, chem panel and uric acid to be checked weekly. 3. Continue IV hydration on daily basis 4. PET CT scan to be done two weeks after his next cycle of chemotherapy- scheduled at [facility]. 5. Follow with trainman on 06/10/2017. I personally spent a total of 20 minutes. Of that 20 minutes was counseling/ coordination of patient's care. See my note above for details. CELESTE MCCLELLAN [facility], ONC Jun 09, 2017 12:44
[2017-06-09 12:55] VITALS: BP 133/80
[2017-06-09 15:32] VITALS: BP 148/80
[2017-06-09] MEDS: HEPARIN FLSH (PORT) 500 UN/5ML IVP PRN (15:34)
[2017-06-10 13:19] VITALS: BP 145/90
[2017-06-10] MEDS: NS(*) 0.9% 1000 ML BAG 1,000 ML IV PRN ×2 (13:19→15:05)
[2017-06-10] MEDS: HEPARIN FLSH (PORT) 500 UN/5ML IVP PRN (16:29)
[2017-06-11] MEDS: LIDOCAINE/SOD BICARB 8.4% SYR ID PRN (08:25)
[2017-06-11] MEDS: NS(*) 0.9% 1000 ML BAG 1,000 ML IV PRN ×2 (08:25→10:00)
[2017-06-11 08:33] VITALS: BP 145/83
[2017-06-11] MEDS: HEPARIN FLSH (PORT) 500 UN/5ML IVP PRN (11:33)
[2017-06-12 08:27] VITALS: BP 134/79
[2017-06-12] MEDS: NS(*) 0.9% 1000 ML BAG 1,000 ML IV PRN ×2 (08:49→10:10)
[2017-06-12] MEDS: LIDOCAINE/SOD BICARB 8.4% SYR ID PRN (08:49)
[2017-06-12] MEDS: HEPARIN FLSH (PORT) 500 UN/5ML IVP PRN (11:44)
[2017-06-15 11:02] VITALS: BP 128/84
[2017-06-15 12:11] LABS: PLATELET COUNT, AUTOMATED 25 K/uL (150-450)
[2017-06-17 11:13] LABS: PLATELET COUNT, AUTOMATED 52 K/uL (150-450)
[2017-06-17 12:35] VITALS: BP 128/84
[~2017-06-19] VITALS: Ht 180.3 cm; Wt 83.0 kg
[~2017-06-19 08:00] MED LIST changes: +ALTEPLASE RECOMB 2 MG VIAL IVP PRN; +CYCLOPHOSPHAMIDE IVPB ONE; +CYCLOPHOSPHAMIDE IVPB PRN; +DEXTROSE 5%(*) 100 ML BAG 100 ML IVPB PRN; +DOXOrubicin 50 MG/25 ML VIAL IVP ONE; +DOXOrubicin 50 MG/25 ML VIAL IVP PRN; +FOSAPREPITANT DIM 150 MG/5 ML 150 MG in NS(*) 0.9% 250 ML BAG 245 ML IVPB PRN; +FOSAPREPITANT IVPB PRN; +NS 0.9% IV ONE; +NS(*) 0.9% 100 ML BAG 100 ML IVPB PRN; -PEGFILGRASTIM 6 MG/0.6 ML KIT SUBQ ONE; +RITUXIMAB IV ONE; +RITUXIMAB IV PRN; +SODIUM CHLORIDE 0.9% IVPB PRN; +WATER STERILE 10 ML VIAL IVP PRN; +[UNRECOGNIZED DRUG - OTHER] IV ONE; +[UNRECOGNIZED DRUG - OTHER] IV PRN; +[UNRECOGNIZED DRUG - OTHER] IVPB ONE; +[UNRECOGNIZED DRUG - OTHER] IVPB PRN; +vinCRIStine SULF 2 MG/2ML VIAL 2 MG in NS(*) 0.9% 50 ML BAG 50 ML IVP ONE
[2017-06-19 08:17] VITALS: BP 120/77
[2017-06-19] MEDS: HEPARIN FLSH (PORT) 500 UN/5ML IVP PRN (09:01)
[2017-06-19] MEDS: LIDOCAINE/SOD BICARB 8.4% SYR ID PRN (09:01)
[2017-06-19] MEDS: NS(*) 0.9% 1000 ML BAG 1,000 ML IV PRN ×2 (09:01→10:42)
--- NOTE | 2017-06-19 17:00 | ONCOLOGY FOLLOW UP NOTE ---
EVENT DATE: June 19, 2017 DIAGNOSES Mantle cell lymphoma lymph nodes of multiple regions CHIEF COMPLAINT Patient is here today for followup of his mantle cell lymphoma on chemotherapy. HEMATOLOGY HISTORY Patient is a 61 year old male who presented with difficulty talking in a full breath and found enlargement of his right tonsil. CT neck on 02/24/17 showed enlargement both palatine tonsils R> L with numerous enlarged neck LNs B/L with B/L axillary LNs noted. He had B/L tonsillectomy done on 03/02/17 and pathology mantle cell lymphoma involving both tonsils. His echocardiogram showed normal LVEF at 63%. BM aspiration and biopsy done on 03/17/17 was involved by MCL (approximately 40% of cells). PET?CT scan done on 03/24/17 showed mild diffuse lymphadenopathy in the neck, chest, abdomen and pelvis with mild thyromegaly and uptake at the base of the penis. Patient has been evaluated by Dr. Johnson at [facility] with recommendation of alternating chemotherapy with R-CHOP with R-DHAP chemotherapy with intrathecal prophylaxis chemotherapy. Patient started treatment with R-CHOP on March 31, 2017. Patient received a total of four courses of chemotherapy. First dose was R-CHOP, second dose with DHAP, and the patient developed acute kidney injury because of cisplatin therapy, so he received his third cycle with R-CHOP, and the fourth cycle with DHAP, but instead of cisplatin the patient received oxaliplatin. HISTORY OF PRESENT ILLNESS Patient is here today for followup of his mantle cell lymphoma, on chemotherapy , pending autologous stem cell transplant. He has an appointment with the Bone Marrow Transplant Center at [facility] next Thursday, June 22, 2017. He does not have any problem except for cold exposure neuropathy, most probably from his oxaliplatin. The patient is doing fine currently. PAST MEDICAL HISTORY Lymphoma. mantel cell multiple sites Malignant neoplasm PAST SURGICAL HISTORY Mediport placement Orife elbow fracture Orif tibia & fibula fractures Tonsillectomy FAMILY HISTORY The patients father, paternal aunt and maternal grandfather have a history of cancer. SOCIAL HISTORY Patient is , has three children and grandchildren. 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 He drinks a beer every two to three months. Denies any abuse of illicit drugs. He smoked one pack per week for 30 years, and chewed a can per week for seven years, but he quit tobacco in March 2016. CURRENT MEDICATIONS 1. Allopurinol 300 mg daily. 2. Lorazepam 1 mg q.4-6 hourly p.r.n. for anxiety or nausea and vomiting. 3. Zofran 8 mg p.o. q.8 hourly p.r.n. for nausea and vomiting. 4. [place] 5/325 one tablet q.4 hourly p.r.n. for pain. 5. Multivitamin s. 6. Aspirin 81 mg daily. 7. [place]-3 fatty acids/fish oil, one capsule three times daily. ALLERGIES No known drug allergies. REVIEW OF SYSTEMS CONSTITUTIONAL: No appetite or weight change. No fever, chills or sweating. No recent infection. HEENT: Ears: No tinnitus or hearing problem. Nose: No nasal discharge or epistaxis. Throat: No sore throat or mouth ulcers. Eyes: No diplopia or visual changes. RESPIRATORY: No shortness of breath. No cough, expectoration or hemoptysis. CARDIOVASCULAR: No chest pain, orthopnea, or paroxysmal nocturnal dyspnea (PND) . No edema. No palpitations. GASTROINTESTINAL: Patient has constipation, under control with stool softeners. GENITOURINARY: No hematuria or dysuria. MUSCULOSKELETAL: No pain in the muscles, joints or bones. 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 HEMATOLOGIC/LYMPHATIC: He is weak, tired and fatigued. SKIN: No skin rash or lumps. PSYCHIATRIC: No anxiety or depression. PHYSICAL EXAMINATION GENERAL: Looks stable. Well-developed, well-nourished, and in no acute distress. VITAL SIGNS: Blood pressure 120/77, pulse 87 per minute, respirations 16 per minute, temperature 97, pulse ox 93% on room air. HEENT: Head: Atraumatic. No sinus tenderness to palpation. Eyes: No icterus or conjunctivitis. Mouth and throat: No oral thrush or mucositis. NECK: There are small palpable posterior cervical lymph nodes about 1 cm bilaterally on the neck. Supple. No cervical or supraclavicular lymphadenopathy. LUNGS: Clear to auscultation and percussion bilaterally. HEART: Regular rate and rhythm. No gallops, murmurs, clicks or rubs. ABDOMEN: Soft and lax. No tenderness. No hepatosplenomegaly. No masses. EXTREMITIES: No cyanosis, clubbing or edema. LYMPHATICS: No peripheral lymphadenopathy. NEUROLOGICAL: Conscious, alert and oriented times three. No focal motor or sensory deficits. PSYCHIATRIC: Mood and affect appear normal. SKIN: No skin rash, bruise or purpuric eruption. DIAGNOSTIC DATA CBC showed white count 10.4, hemoglobin 8.9, hematocrit 25.4, platelets 121, 000. Chem panel totally normal except BUN 24, creatine 1.9, which is up from 1.5, blood sugar 167. AST 36, alkaline phosphatase 134. ASSESSMENT 1. Mantle cell lymphoma. Patient received four courses of chemotherapy. He received his first course with R-CHOP, second course with R-DHAP, and the patient developed acute kidney injury after the second course of chemotherapy because of cisplatin therapy, so he received a third course of R-CHOP, and his fourth course he received DHAP regimen, but instead of cisplatin he received oxaliplatin. His CBC today showed recovery of his bone marrow, the start of it. He tolerated chemotherapy so far generally well. He is due for further evaluation at [facility] on June 22, 2017. I am planning to see him after he will finish the autologous bone marrow transplant, and when he will come back from the center in [place], we are going to check his CBC, chem panel, LDH, uric acid. 2. Acute kidney injury. His creatinine increased from 1.3 to 1.5, and currently 1.9. I am planning to infuse 2 L of normal saline daily for three days, and hopefully this will help his creatinine. He responded to IV fluid hydration in the past when he developed acute kidney injury from cisplatin. 3. Chemotherapy-induced anemia. Current hemoglobin 8.9. His bone marrow showed some recovery with improvement of his hemoglobin from 8.4 to 8.9. We will continue to monitor. 4. Chemotherapy-induced thrombocytopenia. It is improving also from 52,000 and currently 121,000. We will continue to monitor. PLAN 1. IV fluids with normal saline 2 L IV infusion daily for three days. 2. Check chem panel after the third dose of fluids. 3. Await evaluation and management of autologous stem cell transplant, as the patient has an appointment on June 22, 2017. 4. Patient to return after he will finish with his bone marrow transplant with CBC, chem panel, LDH, uric acid. 5. Patient to contact us for any new concerns or complaints. [facility]
[2017-06-20] MEDS: HEPARIN FLSH (PORT) 500 UN/5ML IVP PRN (08:31)
[2017-06-20] MEDS: NS(*) 0.9% 1000 ML BAG 1,000 ML IV PRN ×2 (08:31→09:59)
[2017-06-20 08:35] VITALS: BP 141/84
[2017-06-21] MEDS: HEPARIN FLSH (PORT) 500 UN/5ML IVP PRN (08:23)
[2017-06-21] MEDS: NS(*) 0.9% 1000 ML BAG 1,000 ML IV PRN ×2 (08:23→09:59)
[2017-06-21 08:29] VITALS: BP 153/89
== END 2017-06-28 ==
LOC: SPU 08:00
PROVIDERS: ATTEND Internal Medicine Hematology
DX: C83.11 Mantle cell lymphoma, lymph nodes of head, face, and neck (principal); Z79.82 Long term (current) use of aspirin; Z79.899 Other long term (current) drug therapy; Z87.891 Personal history of nicotine dependence; J90 Pleural effusion, not elsewhere classified; D70.2 Other drug-induced agranulocytosis
CPT/HCPCS: 36415; 71020; 83615; 84100; 84550; 85025; 85027; 96360; 96361; 96366; 96375; 96411; 96413; 96415; 96417; 99212; J1200; J1453; J1642; J2469; J7030; J7040; J7050; J9000; J9070; J9310; J9370; 82040; 82247; 82310; 82374; 82435; 82565; 82947; 84075; 84132; 84155; 84295; 84450; 84460; 84520; 96367

== ENCOUNTER 2017-06-23 09:00 | Outpatient (RCR) | payer OTHER ==
--- NOTE | 2017-04-01 08:59 | PT INITIAL EVALUATION ---
MEDICAL DIAGNOSIS: Mantle Cell Lymphoma TREATMENT DIAGNOSIS: Mantle Cell Lymphoma DATE OF ONSET: 03/02/17 SUBJECTIVE: Houston is a 61 year-old male initiating R-CHOP (rituximab, cyclophosphamide doxorubicin (hydroxydaunomycin), vincristine (Oncovin), prednisolone) chemotherapy treatment, 42 days 3 cycles, followed by Neulasta with each cycle for his newly diagnosed mantle cell lymphoma. Treatment is to progress towards stem cell transplant. Pt recently received education from nurse practitioner and social work on treatment. Pt is to receive education as well as initial functional screen for PT for maintenance of condition. At this time, pt identified problems include reports of fatigue, as well as delayed healing on surgical site in mouth where tonsils were removed. Pt has no pain or reported weakness and is fairly active. 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 OBJECTIVE: ROM: LE and UE ROM WFL Strength: LE MMT: Hip: all movements 5/5, Knee: all movements 5/5, Ankle: PF: 5/ 5, DF: 4+/5 L (Broken Ankle in 2011), 5/5 R Sensation: Pt reports no change in sensation or numbness or tingling. Special Tests: FACT-G (Initial Eval 03/31/17): PWB 23/28, SWB 22.2/28, EWB 15/24 , FWB 18/, Total 78.2/108 Mobility: ECOG Performance Status: Grade 1 ASSESSMENT: Pt shows signs and symptoms of general fatigue as well as decreased emotional well-being secondary to recent lymphoma diagnosis. Physical therapy is indicated to maintain pt functional well-being and physical status with ongoing oncological intervention. Short Term Goals In 3 months pt will maintain ECOG performance status of grade 2 or less indicating improved outcomes with oncological intervention and functional status. In 3 months pt will improve FACT-G well-being scores of greater than 80/108 for improved well-being and functional status with ADL's. In 6 months pt will maintain ECOG performance status of grade 2 or less indicating improved outcomes with oncological intervention and functional status. In 6 months pt will improve FACT-G well-being scores of greater than 80/108 for improved well-being and functional status with ADL's. In 6 months pt will maintain strength of 4+/5 or greater in all LE MMT indicating maintenance of strength for ADL's. Patient's Goals Maintain function with ongoing oncological treatment. PLAN: Patient to be seen for Manual Therapy/STM/MET Strengthening/condition Ice/Heat Range of Motion Spinal Stabilization Ultrasound Stretching Iontophoresis Neuromuscular Re-ed Closed Chain Program Electrical Stim Posture/Body mechanics Gait Trg/Balance Trg Biofeedback Home Exercise Program Mech./Manual Traction Therapeutic Activities Pelvic Floor 1x/MO for 6 MO If you have any questions, comments, or concerns about this report or plan, please contact me at . Thank you, Edna Ortiz, PT, DPT, CLT MTDD
--- NOTE | 2017-05-12 09:43 | PT PLAN OF CARE ---
Physician: MORENA Trotter Patient is being seen: 1x/MO Therapist: Edna Ortiz, PT, DPT, CLT Medical Diagnosis: Mantle Cell Lymphoma Treatment Diagnosis: Mantle Cell Lymphoma Date of Onset: 03/02/17 Date of Initial Evaluation: 03/31/17 Date patient was last seen: 05/12/17 Number of treatments: 2 Number of cancellations/No shows: 0 INTERVENTIONS: Manual Therapy/STM/MET Strengthening/condition Ice/Heat Range of Motion Spinal Stabilization Ultrasound Stretching Iontophoresis Neuromuscular Re-ed Closed Chain Program Electrical Stim Posture/Body mechanics Gait Trg/Balance Trg Biofeedback Home Exercise Program Mech./Manual Traction Therapeutic Activities Pelvic Floor GOALS: In 3 months pt will maintain ECOG performance status of grade 2 or less indicating improved outcomes with oncological intervention and functional status. In 3 months pt will improve FACT-G well-being scores of greater than 80/108 for improved well-being and functional status with ADL's. In 6 months pt will maintain ECOG performance status of grade 2 or less indicating improved outcomes with oncological intervention and functional status. In 6 months pt will improve FACT-G well-being scores of greater than 80/108 for improved well-being and functional status with ADL's. In 6 months pt will maintain strength of 4+/5 or greater in all LE MMT indicating maintenance of strength for ADL's. PATIENT'S GOAL: Maintain function with ongoing oncological treatment. Status of Patient's Goals: In Progress Patient Compliance: Good Prognosis: Good Reasons for continuing therapy: Pt shows good maintenance of activity level despite extensive time spent in the hospital and cancer center for hydration. Pt denies any pain or physical side effects at this time other than occasional headaches and decreased appetite associated with taste changes. FACT-G shows changes in functional status and physical status associated with side-effects and prolonged hospitalization and appointments. Posture: Forward head posture ROM: LE and UE ROM WFL Strength: LE MMT: Hip: all movements 5/5, Knee: all movements 5/5, Ankle: PF: 5/ 5, DF: 4+/5 L (Broken Ankle in 2011), 5/5 R Special Tests: FACT-G (Initial Eval 03/31/17): PWB 23/28, SWB 22.2/28, EWB 15 , FWB , Total 78.2/108 FACT-G 05/12/17: PWB , SWB 23.3, EWB , FWB 03/24, Total 65.3/108 Mobility: ECOG Performance Status: Grade 1 If you have any questions or concerns, please feel free to contact me at . Thank you, Edna Ortiz, PT, DPT, CLT MTDD
[~2017-06-23 09:00] MED LIST changes: -ALTEPLASE RECOMB 2 MG VIAL IVP PRN; -CYCLOPHOSPHAMIDE IVPB ONE; -CYCLOPHOSPHAMIDE IVPB PRN; -DEXTROSE 5%(*) 100 ML BAG 100 ML IVPB PRN; -DOXOrubicin 50 MG/25 ML VIAL IVP ONE; -DOXOrubicin 50 MG/25 ML VIAL IVP PRN; -FOSAPREPITANT DIM 150 MG/5 ML 150 MG in NS(*) 0.9% 250 ML BAG 245 ML IVPB PRN; -FOSAPREPITANT IVPB PRN; -NS 0.9% IV ONE; -NS(*) 0.9% 100 ML BAG 100 ML IVPB PRN; -RITUXIMAB IV ONE; -RITUXIMAB IV PRN; -SODIUM CHLORIDE 0.9% IVPB PRN; -WATER STERILE 10 ML VIAL IVP PRN; -[UNRECOGNIZED DRUG - OTHER] IV ONE; -[UNRECOGNIZED DRUG - OTHER] IV PRN; -[UNRECOGNIZED DRUG - OTHER] IVPB ONE; -[UNRECOGNIZED DRUG - OTHER] IVPB PRN; -vinCRIStine SULF 2 MG/2ML VIAL 2 MG in NS(*) 0.9% 50 ML BAG 50 ML IVP ONE
== END 2017-06-29 ==
LOC: PT 09:00
PROVIDERS: ATTEND Nurse Practitioner Family
DX: C83.10 Mantle cell lymphoma, unspecified site (principal); R53.83 Other fatigue
CPT/HCPCS: 97161

== ENCOUNTER → 2017-07-16 | Outpatient (CLI) | payer OTHER ==
[~2017-07-16] MED LIST changes: +PEGFILGRASTIM 6 MG/0.6 ML SYR SUBQ ONE
[2017-07-16 10:20] VITALS: BP 126/70
== END ==
LOC: SPU 09:52
PROVIDERS: ATTEND Internal Medicine Hematology
DX: C83.10 Mantle cell lymphoma, unspecified site (principal)
CPT/HCPCS: 96372; J2505

== ENCOUNTER 2017-07-21 10:00 | Outpatient (RCR) | payer OTHER ==
[~2017-07-21 10:00] MED LIST changes: -PEGFILGRASTIM 6 MG/0.6 ML SYR SUBQ ONE
--- NOTE | 2017-07-21 11:08 | PT PLAN OF CARE ---
Physician: Sin Hilliard MD Patient is being seen: 1x/MO Therapist: Edna Ortiz, PT, DPT, CLT Medical Diagnosis: Mantle Cell Lymphoma Treatment Diagnosis: Mantle Cell Lymphoma Date of Onset: 03/02/17 Date of Initial Evaluation: 03/31/17 Date patient was last seen: 07/21/17 Number of treatments: 3 Number of cancellations/No shows: 0 INTERVENTIONS: Manual Therapy/STM/MET Strengthening/condition Ice/Heat Range of Motion Spinal Stabilization Ultrasound Stretching Iontophoresis Neuromuscular Re-ed Closed Chain Program Electrical Stim Posture/Body mechanics Gait Trg/Balance Trg Biofeedback Home Exercise Program Mech./Manual Traction Therapeutic Activities Pelvic Floor GOALS: In 3 months pt will maintain ECOG performance status of grade 2 or less indicating improved outcomes with oncological intervention and functional status. MET In 3 months pt will improve FACT-G well-being scores of greater than 80/108 for improved well-being and functional status with ADL's. In 6 months pt will maintain ECOG performance status of grade 2 or less indicating improved outcomes with oncological intervention and functional status. In 6 months pt will improve FACT-G well-being scores of greater than 80/108 for improved well-being and functional status with ADL's. In 6 months pt will maintain strength of 4+/5 or greater in all LE MMT indicating maintenance of strength for ADL's. PATIENT'S GOAL: Maintain function with ongoing oncological treatment. Status of Patient's Goals: In Progress Patient Compliance: Good Prognosis: Good Reasons for continuing therapy: Pt shows good progress with adjustments in chemotherapy with improved function and mobility. Lingering deficits remain with cervicogenic headaches occasionally as well as constipation, and change in taste affecting diet. Pt educated on exercises to assist with decreased cervical tone and self massage to assist in GI motility. Pt is to continue with treatment in July in [place] for an extensive period including stem cell transplant. Pt to be re-asses following for any functional deficits. Posture: Forward head posture ROM: LE and UE ROM WFL Strength: LE MMT: Hip: all movements 5/5, Knee: all movements 5/5, Ankle: PF: 5/ 5, DF: 4+/5 L (Broken Ankle in 2011), 5/5 R Special Tests: FACT-G (Initial Eval 03/31/17): PWB 23/28, SWB 22.2/28, EWB 15/24 , FWB , Total 78.2/108 FACT-G 05/12/17: PWB 16, SWB 23.3/, EWB 15, FWB 03/24, Total 65.3/108 FACT-G 07/21/17: PWB: 20, SWB: 22.2/, EWB , FWB 03/24, Total 72.2/ 108 Mobility: ECOG Performance Status: Grade 1 If you have any questions or concerns, please feel free to contact me at . Thank you, Edna Ortiz, PT, DPT, CLT MTDD
== END 2017-07-21 18:00 | disposition home or self-care (01) ==
LOC: PT 10:00
PROVIDERS: ATTEND Internal Medicine Hematology
DX: C83.10 Mantle cell lymphoma, unspecified site (principal); R53.83 Other fatigue; R51 Headache; K59.00 Constipation, unspecified

== ENCOUNTER 2017-07-29 09:45 | Outpatient (RCR) | payer OTHER ==
[2017-07-07 11:10] VITALS: BP 127/89
[2017-07-07 11:18] LABS: PLATELET COUNT, AUTOMATED 163 K/uL (150-450)
[2017-07-08 14:37] VITALS: BP 126/89
[2017-07-08] MEDS: NS 0.9% IV PRN ×2 (15:10→15:55)
[2017-07-08] MEDS: LIDOCAINE/SOD BICARB 8.4% SYR ID PRN (15:55)
[2017-07-08] MEDS: HEPARIN FLSH (PORT) 500 UN/5ML IVP PRN (17:05)
[2017-07-09 10:34] VITALS: BP 142/84
[2017-07-09] MEDS: NS 0.9% IV PRN ×3 (11:02→13:43)
[2017-07-09] MEDS: HEPARIN FLSH (PORT) 500 UN/5ML IVP PRN (14:47)
--- NOTE | 2017-07-09 18:11 | ONCOLOGY FOLLOW UP NOTE ---
EVENT DATE: July 09, 2017 DIAGNOSES Mantle cell lymphoma lymph nodes of multiple regions CHIEF COMPLAINT Patient is here today for followup of his mantle cell lymphoma on chemotherapy. HEMATOLOGY HISTORY Patient is a 61-year-old male who presented with difficulty talking in a full breath and found enlargement of his right tonsil. CT neck on 02/24/17 showed enlargement both palatine tonsils R> L with numerous enlarged neck LNs B/L with B/L axillary LNs noted. He had B/L tonsillectomy done on 03/02/17 and pathology mantle cell lymphoma involving both tonsils. His echocardiogram showed normal LVEF at 63%. BM aspiration and biopsy done on 03/17/17 was involved by MCL (approximately 40% of cells). PET CT scan done on 03/24/17 showed mild diffuse lymphadenopathy in the neck, chest, abdomen and pelvis with mild thyromegaly and uptake at the base of the penis. Patient has been evaluated by Dr. Johnson at [facility] with recommendation of alternating chemotherapy with R-CHOP with R-DHAP chemotherapy with intrathecal prophylaxis chemotherapy. Patient started treatment with R-CHOP on March 31, 2017. Patient received a total of four courses of chemotherapy. First dose was R-CHOP, second dose with DHAP, and the patient developed acute kidney injury because of cisplatin therapy, so he received his third cycle with R-CHOP, and the fourth cycle with DHAP, but instead of cisplatin the patient received oxaliplatin. HISTORY OF PRESENT ILLNESS Patient is here today for followup of his mantle cell lymphoma. He is doing very well currently. He is totally asymptomatic. PAST MEDICAL HISTORY Lymphoma. mantel cell multiple sites Malignant neoplasm PAST SURGICAL HISTORY Mediport placement ORIF elbow fracture ORIF tibia & fibula fractures Tonsillectomy FAMILY HISTORY The patients father, paternal aunt and maternal grandfather have a history of cancer. SOCIAL HISTORY Patient is , has three children and grandchildren. 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 He drinks a beer every two to three months. Denies any abuse of illicit drugs. He smoked one pack per week for 30 years, and chewed a can per week for seven years, but he quit tobacco in March 2016. CURRENT MEDICATIONS 1. Allopurinol 300 mg daily. 2. Lorazepam 1 mg q.4-6 hourly p.r.n. for anxiety or nausea and vomiting. 3. Zofran 8 mg p.o. q.8 hourly p.r.n. for nausea and vomiting. 4. [place] 5/325 one tablet q.4 hourly p.r.n. for pain. 5. Multivitamin s. 6. Aspirin 81 mg daily. 7. [place]-3 fatty acids/fish oil, one capsule three times daily. ALLERGIES No known drug allergies. REVIEW OF SYSTEMS CONSTITUTIONAL: No appetite or weight change. No fever, chills or sweating. No recent infection. HEENT: Ears: No tinnitus or hearing problem. Nose: No nasal discharge or epistaxis. Throat: No sore throat or mouth ulcers. Eyes: No diplopia or visual changes. RESPIRATORY: No shortness of breath. No cough, expectoration or hemoptysis. CARDIOVASCULAR: No chest pain, orthopnea, or paroxysmal nocturnal dyspnea (PND) . No edema. No palpitations. GASTROINTESTINAL: Patient has constipation, under control with stool softeners. GENITOURINARY: No hematuria or dysuria. MUSCULOSKELETAL: No pain in the muscles, joints or bones. 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 HEMATOLOGIC/LYMPHATIC: He is weak, tired and fatigued. SKIN: No skin rash or lumps. PSYCHIATRIC: No anxiety or depression. PHYSICAL EXAMINATION GENERAL: Looks stable. Well-developed, well-nourished, and in no acute distress. VITAL SIGNS: Blood pressure 142/84, pulse 80 per minute, respirations 16 per minute, temperature 97.9. HEENT: Head: Atraumatic. No sinus tenderness to palpation. Eyes: No icterus or conjunctivitis. Mouth and throat: No oral thrush or mucositis. NECK: There are small palpable posterior cervical lymph nodes about 1 cm bilaterally on the neck. Supple. No cervical or supraclavicular lymphadenopathy. LUNGS: Clear to auscultation and percussion bilaterally. HEART: Regular rate and rhythm. No gallops, murmurs, clicks or rubs. ABDOMEN: Soft and lax. No tenderness. No hepatosplenomegaly. No masses. EXTREMITIES: No cyanosis, clubbing or edema. LYMPHATICS: No peripheral lymphadenopathy. NEUROLOGICAL: Conscious, alert and oriented times three. No focal motor or sensory deficits. PSYCHIATRIC: Mood and affect appear normal. SKIN: No skin rash, bruise or purpuric eruption. DIAGNOSTIC DATA CBC showed white count 4.1, hemoglobin 10.4, hematocrit 29.7, platelets 163, 000. Chem panel totally normal except creatine 1.6, which is down from 2 with IV fluids. Bone marrow aspiration biopsy done on June 22 was negative for lymphomatous involvement. PET CT scan done on June 22, 2017 did reveal peribronchial lymph node with maximum SUV of 3.4, which is up from 2.9. The right axillary lymph node dropped from 1 x 1.3 cm and currently 1.1 x 1.2 cm, and the SUV is below the normal. There is no FDG avid lymphadenopathy in the abdomen and pelvis, except for left external iliac lymph node which was 1.6 x 1 cm, and currently 1.3 x 0.9 cm, and the SUV is below the mediastinal blood pool. ASSESSMENT 1. Mantle cell lymphoma. Patient received four courses of chemotherapy. He received his first course with R-CHOP, second course with R-DHAP, and the patient developed acute kidney injury after the second course of chemotherapy because of cisplatin therapy, so he received a third course of R-CHOP, and his fourth course he received R-DHAP regimen, and instead of cisplatin he received oxaliplatin, which the patient does not like because of neuropathy. He has been evaluated at [facility] for autologous stem cell transplant, and he had a PET scan which showed continued response to the treatment, and he had also bone marrow aspiration biopsy which came back negative for lymphomatous involvement. Accordingly to the recommendation, I am planning to admit the patient next week to receive treatment with rituximab and LYNDSAY-C only until the patient will have his bone marrow transplant autologous very soon. He has an appointment on August 04 to start that. 2. Acute kidney injury. His creatinine currently is better. It was 2 yesterday, but with IV fluids it is currently 1.6. I am planning to continue IV fluids for a total of three days, 3 L everyday. 3. Chemotherapy-induced anemia. Current hemoglobin 10.4. Consider blood transfusion if the hemoglobin drops below 8 g/dL. 4. Chemotherapy-induced thrombocytopenia. Current platelet count recovered and it is 163,000. PLAN 1. IV fluid with normal saline 3 L over four hours for three days. 2. Check chem panel daily prior to the IV fluids. 3. Patient will be admitted next week to receive Rituximab and LYNDSAY-C. 4. Consider Aranesp to be given next week, July 16, 2017. 5. Patient to contact us for any new concerns or complaints. [facility]
[2017-07-10 10:12] VITALS: BP 129/84
[2017-07-10] MEDS: NS 0.9% IV PRN (10:12)
[2017-07-10] MEDS: LIDOCAINE/SOD BICARB 8.4% SYR ID PRN (10:12)
[2017-07-10] MEDS: HEPARIN FLSH (PORT) 500 UN/5ML IVP PRN (13:36)
[2017-07-21 10:07] VITALS: BP 115/78
[2017-07-21 10:32] LABS: PLATELET COUNT, AUTOMATED 70 K/uL (150-450)
[~2017-07-29 09:45] MED LIST changes: +ALTEPLASE RECOMB 2 MG VIAL IVP PRN; +DEXTROSE 5%(*) 100 ML BAG 100 ML IVPB PRN; +NS(*) 0.9% 100 ML BAG 100 ML IVPB PRN; +NS(*) 0.9% 500 ML BAG 500 ML IV PRN; +WATER FOR INJ,STERILE 20 ML IVP PRN
[2017-07-29 10:27] VITALS: BP 108/76
== END 2017-08-21 11:22 | disposition home or self-care (01) ==
LOC: SPU 09:45
PROVIDERS: ATTEND Internal Medicine Hematology
DX: C83.10 Mantle cell lymphoma, unspecified site (principal); Z92.21 Personal history of antineoplastic chemotherapy; N17.9 Acute kidney failure, unspecified; D64.81 Anemia due to antineoplastic chemotherapy; D69.59 Other secondary thrombocytopenia; Z87.891 Personal history of nicotine dependence
CPT/HCPCS: 36415; 83615; 84100; 84550; 85025; 96360; 96361; J1642; J7030; 82040; 82247; 82310; 82374; 82435; 82565; 82947; 84075; 84132; 84155; 84295; 84450; 84460; 84520

== ENCOUNTER → 2017-10-25 | Outpatient (CLI) | payer OTHER ==
[~2017-10-25] MED LIST changes: +ACYC800T99 PO; -ALTEPLASE RECOMB 2 MG VIAL IVP PRN; +BUPR-136 PO; +CEFP200T18 PO; +CHOL10005 PO; +CYAN100088 PO; -DEXTROSE 5%(*) 100 ML BAG 100 ML IVPB PRN; +FILGRASTIM 480 MCG/1.6 ML VIAL SC ONE; +FLUC200T56 PO; +LORA-629 PO; -NS(*) 0.9% 100 ML BAG 100 ML IVPB PRN; -NS(*) 0.9% 500 ML BAG 500 ML IV PRN; +NYST100016; +PANT40TA65 PO; +PYRI100T59 PO; +TRIA15OI20 TP; -WATER FOR INJ,STERILE 20 ML IVP PRN
== END ==
LOC: SPU 09:00
PROVIDERS: ATTEND Internal Medicine Hematology
DX: C83.10 Mantle cell lymphoma, unspecified site (principal)
CPT/HCPCS: 96372; J1442

== ENCOUNTER 2018-01-14 09:30 | Outpatient (RCR) | payer OTHER ==
[2017-10-22 08:54] VITALS: BP 124/58
[2017-10-22 09:17] LABS: PLATELET COUNT, AUTOMATED 15 K/uL (150-450)
--- NOTE | 2017-10-22 19:00 | Oncology Note ---
Patient Name: Houston Thurman Unit Number: [id number] Date of : 1955 Patient Status: Registered Recurring Attending Doctor: Brandy Masterson MD History of Present Illness History of Present Illness Evaluation Evaluation Date: Oct 22, 2017 Evaluation Time: 09:45 Primary Care Provider Primary Care Provider: Marly Accompanied by Accompanied by: Eleni, Significant other Last seen by DrElina: Bethel Johnson MD and Transplant team on 10/05/17 ; 10/18/17 Chief Complaint Chief Complaint: Follow up management of Stage KELSEY MANTLE CELL LYMPHOMA, s/p Auto SCT (Day +33 (10/22/17) Cell Boost Infusion); Day +77 (10/22/17) Auto SCT with R-Beam Diagnosis KELSEY MANTLE CELL LYMPHOMA, s/p auto SCT Oncology History Initial disease was presented with acute onset of dyspnea found to have cervical LAD Initially the plan was for total 6 cycles of R CHOP alternated with RDHAP with each cycle administered every [address]. [address] H AP he's course was complicated by acute kidney injury and hence we switched cisplatin to oxaliplatin (based on abstract at [facility] 2017 by danielle et al) He completed R-CHOP- RDHAP- R CHOP- RDHAX During PET CT I's back after 2 cycles showed a complete metabolic remission PET/CT post 4 cycles of chemotherapy showed a deauville 3 complete metabolic remission He subsequently underwent successful stem cell collection Post collection we omitted RCHOP and instead of RDHAX we administered only Rituximab plus Cytarabine in light of oxaliplatin induced adverse effects. - on 08/11/2017 He then underwent an AutoHDT with R-BEAM - unfortunately he was diagnosed with Graft Failure - Bone marrow Biopsy done showed hypocellularity and no evidence of MCL - on 09/16/2017 He was then given a sten cell boost - Admitted with Neutropenic fever, then Discharged. . HPI HPI: Mr. Cuca Conrad, is a 62-year-old male patient has stage KELSEY Mantle Cell Lymphoma : DX 02/2017. Initial disease was presented with acute onset of dyspnea found to have cervical LAD. Initial plan was for total 6 cycles of R CHOP , alternating with RDHAP with each cycle administered every 21 days. However post RDHAP his course was complicated by JOEL and switched cisplatin to oxaliplatin. Status post R-CHOP- RDHAP- R CHOP- RDHAX. Bone marrow biopsy showed markedly hypercellular marrow 90% average cellularity with active trilineage hematopoiesis and no morphologic or immunophenotypic phenotype evidence of disease. S/post Auto SCT with R Beam conditioning.Patient's presents to the clinic today accompany by s . He was recently discharged from the transplant Center in [place] he reports being in his usual state of health. He denies any new symptoms no new complaints. He denies fevers, chills, sore throat, night sweats, no cough, no dyspnea, no palpitations, no cardiac type chest pain, no nausea vomiting diarrhea, he abdominal pain, he denies any bleeding dark stools, or hematuria he reports weakness although he is able to walk half a mile a day with breaks as needed, he is very pleased that he is back home. "Day 0' on 08/11/2017 c/b engraftment with subsequent fever infection leading to recurrent persistent pancytopenia and neutropenic fevers. - 09/10/2017 which was absent for any trilineage hematopoiesis. Given prolonged pancytopenia, patient underwent stem cell boost infusion - 09/16/17 S/p Bone marrow biopsy. -Day +77 (10/22/17) Auto SCT with R-Beam -Day +33 (10/22/17) Cell Boost Infusion Diagnostic Studies Result Diagram: 10/22/17 0743 10/22/17 0743 Past Medical/Surgical Hx PMH PAST MEDICAL HISTORY Lymphoma. mantel cell multiple sites Malignant neoplasm PAST SURGICAL HISTORY Mediport placement ORIF elbow fracture ORIF tibia & fibula fractures Tonsillectomy FAMILY HISTORY The patients father, paternal aunt and maternal grandfather have a history of cancer. SOCIAL HISTORY Patient is , has three children and grandchildren. 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 He drinks a beer every two to three months. Denies any abuse of illicit drugs. He smoked one pack per week for 30 years, and chewed a can per week for seven years, but he quit tobacco in March 2016. Social/Occupational History Social History: Social History This is a 62 Yr old White male, he is M and has [3] Children Hx Smoking: Yes Smoking Status: Former Smoker Exposure to Second Hand Smoke?: No When Quit Tobacco?: QUIT WHEN STARTED CHEMO, on wellbutrin. Allergies & Medications Allergies & Medications Cisplatin and Oxaliplatin Home Meds Reported Medications Acyclovir 800 mg by mouth twice a day wellbutrin 150 Po Qday Cefpodoxime Vantin 200mg PO BID Cholecalciferol Vitamin D3 1000units Po daily Fuconazole 400 mg PO Daily Prochlorperazine Maleate (Compazine) 10 Mg Tablet, 10 MG PO Q6H, # Lorazepam (LORAZEPAM) 1 Mg Tab, 1 TAB PO Q4-6H Y for nausea, Ondansetron (ZOFRAN ODT) 8 Mg Tab.rapdis, 8 MG PO Q8H 1 Multivitamin (MULTI VITAMIN DAILY) 1 Each Tablet, 1 EACH PO DAILY 03/12/17 Docusate Colace 100 mg Po BID PRN Loratadine 10 mg Po PRN for bone pain Nystatin/ Mycostatin 100,000 unit/ml oral swish and spit by mouth qID PRN Protonix 40 mg by mouth daily Pyridoxine Vitamin B6 100 mg Tab Po Daily Triamcinolone kenalog 0.1% topical PRN itchiness Hospital admin filgrastim-and (Zarxio) Sc injection 480mcg/0.8mL ROS/Exam Review of Systems Constitution: Positive for Appetite/Weight Change, Denies Fever/Chills/Sweating , Denies Recent Infection, + reports fatigue. HEENT: No EARS: Tinnitus, No NOSE: Nasal Discharge, No THROAT: Sore Throat, No EYES: Dipolpia, No EARS: Hearing Problems, No NOSE: Epistaxis, No THROAT: Mouth Ulcers, No EYES: Vision Change, No OTHER Respiratory: Shortness of Breath (On exertion) Cardiovascular: No Chest Pain, No Orthopnea, No Edema, No Palpitations, No OTHER Gastrointestinal: Nausea, No Vomitting, No Diarrehea, No Constipation, No Heart Burn, No Swallowing Difficulties, No Abdominal Pain, No Other Gentiourinary: No Hematuria, No Dysuria, No Nocturia, No Other Musculoskeletal: No Muscle Pain, No Joint Pain, Bone Pain, No Other Hematological: No Bleeding, Weakness, No Enlarged Lyph Nodes, No Bruising, Fatigue, No Other Skin: No Skin Rash, No Lumps, No Erythema, No Dry Skin, No Moist Skin, No Other Psychiatric: Anxiety Vital Signs Vital Signs Temperature: 97.4 Pulse: 96 BP Systolic: 124 BP Diastolic: 58 Respiratory Rate: 16 O2 SAT: 98 O2 Delivery: Height (feet) Height (inches) 71.00 Weight lb: 169 Weight oz: Weight Kg (Leon): [phone] Pain: 0 Physical Exam PERFORMANCE STATUS: ECOG 1 Strenuous physical activity restricted; fully ambulatory and able to carry out light work. General: Looks Stable HEENT: HEAD:Atraumatic, No EYES: Conjuctivitis, No EYES: Icterus, No MOUTH: Mucocitis, No MOUTH: Oral Thrush, No SINUS: Tenderness to Palpation, No Other Neck: Supple, No Cervical Lymphadenopathy, No Subclavicular Lymphadopathy, No Thyromegaly, No Other Lungs: Clear to Auscultation, Percussion Bilaterally Heart: Regular Rate and Rhythm, No Gallops, No Murmurs, No Clicks, No Rubs, No Other Abdomen: Soft and Nontender, No Hepatosplenomegaly, No Masses, No Other Extremities: No Cyanosis, No Clubbing, No Edema, No Other Lymphatics: No Peripheral Lymphadenopathy, No Other Psychiatric: Mood appears normal, Affect appears normal Skin: No Skin Rashes, No Bruising, No Purpura, No Moist Desquamation, No Dry Desquamation, No Erythema, No Mild Erythema, No Moderate Erythema, No Severe Erythema, No Induration, No Other Breast: No No Masses, No No Nipple Discharge, No No Skin Changes, No Other Assessment Mr. Cuca Conrad, is a 62-year-old male patient has stage KELSEY Mantle Cell Lymphoma : DX 02/2017. Initial disease was presented with acute onset of dyspnea found to have cervical LAD Diagnostics Labs WBC 2.9; hemoglobin 7.8; hematocrit 21.7; Platelets 15; ANC 1.9;BUN 28; Creatinine 1.8 1. Stage KELSEY Mantle Cell Lymphoma : DX 02/2017 S/p Auto SCT with R Beam conditioning. Status post R-CHOP- RDHAP- R CHOP- RDHAX. Bone marrow biopsy showed markedly hypercellular marrow 90% average cellularity with active trilineage hematopoiesis and no morphologic or immunophenotypic phenotype evidence of disease "Day 0' on 08/11/2017 c/b engraftment with subsequent fever infection leading to recurrent persistent pancytopenia and neutropenic fevers. - 09/10/2017 which was absent for any trilineage hematopoiesis. Given prolonged pancytopenia, patient underwent stem cell boost infusion - 09/16/17 S/p Bone marrow biopsy. -Day +77 (10/22/17) Auto SCT with R-Beam -Day +33 (10/22/17) Cell Boost Infusion 2. Chronic Kidney Disease. Likely 2/2 cisplatin treatment, baseline creatinine is 1.21.5. Estimated creatinine clearance 54.2 Avoid NSAID, nephrotoxic medication, renally adjust medications. 3. REJI positive Speckled reveal ed by recent test result. Rheumatology referral 4. Chronic Intermittent Constipation. managed with stool softener currently on colace 100 mg PO BID PRN. 5. ID. afebrile. Denies fevers at home, chills, shivering, Temp. 97.4 Currently on acyclovir, fluconazole ppx. No PCP ppx. G6PD 8.7 , per Benign Hem recommend avoid dapsone, Hold Bactrim for now given myelosuppression. Discuss options Atovaquone OP as alternative once counts have completely recovered. 6. Smoking cessation. patient reports doing very well with cravings, only having occasional urges, continues to take Wellbutrin. 7. Anxiety. Therapeutic communication provided today, and encouraged to take anxiolytic as prescribed PRN. 8. Anemia. Hgb 7.9 Patient received last Blood product transfusion 10/18/2017. Will monitor counts tightly. 9. Electrolyte Imbalance. will replete Lytes PRN. PLAN 1. Labs 3x week CBC,CMP, MG, Phos, LDH, until the patient is GCSF free and transfusion free 2. Lab draw today, Lab as above on 10/24/17Thursday with PRN Transfusion support as clinically indicated 3. GCSF per ANC <1000 (480mcg Sc) 4. Transfuse Platelet if </=10K or symptomatic 5. Transfuse PRBC if Hgb </=7.0 or symptomatic 6. RNs to notify MD/GRAHAM with lab values STAT 7. RNs make Certain ALL BLOOD PRODUCTS are; LEUKO-REDUCED, IRRADIATED, CMV NEGATIVE. 8.PLEASE premedicate with 325 mg by mouth of Tylenol PLUS 25 mg of Benadryl by mouth, at least 30 minutes prior to beginning of transfusion 9. Rheumatology referral for REJI positive Speckled 10. Discuss options Atovaquone OP as alternative once counts have completely recovered for PCP ppx. patient G6PD 8.7 ( 10/09/2017) 11. Patient and aware and understand of the indications to report to the cancer center, Immediately with any concern or report to the ER to include fever of 101 or greater, chills, spontaneous bleeding, chest pain, abdominal pain, SOB, or any symptoms requiring medical attention. TIME SPENT: 65 minutes 60 > minutes includes but not limited to discussion, counselling and co-ordination~ of care. Discussion with other health care providers, record review, review of lab work,medication review, diagnostic tests. Plan discussed extensively with patient and spouse. All the questions answered today at length. Thank you for the opportunity to be involved in the care of Cuca Conrad. Billing Level: Return visit 5 Assessment and Plan Copies To 1: BRANDY MASTERSON MD; RYANN JOHNSON MDDEMARCUS WILLETT MELT HOUSE CENTRIFUGAL OPERATOR-C, ONC Oct 22, 2017 13:27
[2017-10-23] VITALS (8 sets, daily range): BP systolic 100–119; BP diastolic 67–83
[2017-10-23] MEDS: NS(*) 0.9% 500 ML BAG 500 ML IV PRN (17:10)
--- NOTE | 2017-10-23 18:19 | Oncology Note ---
[facility] Patient History: Patient reports no known family medical history. Social/Occupational History Social History: Social History This is a 62 Yr old White male, he is M and has [] Children Hx Smoking: Yes Smoking Status: Former Smoker Exposure to Second Hand Smoke?: No When Quit Tobacco?: QUIT WHEN STARTED CHEMO Allergies & Medications Allergies: Coded Allergies: No Known Drug Allergies (Unverified , 02/24/17) Home Meds Active Scripts Prochlorperazine Maleate (Compazine) 10 Mg Tablet, 10 MG PO Q6H, #30 TAB 3 Refills Prov:CELESTE MCCLELLAN [facility]-, ONC 04/28/17 Allopurinol (Allopurinol) 300 Mg Tablet, 300 MG PO DAILY, #30 TAB 9 Refills Prov:CELESTE MCCLELLAN [facility]-, ONC 03/30/17 Lorazepam (LORAZEPAM) 1 Mg Tab, 1 TAB PO Q4-6H Y for nausea, #30 TAB 1 Refill Prov:CELESTE MCCLELLAN [facility]-, ONC 03/30/17 Ondansetron (ZOFRAN ODT) 8 Mg Tab.rapdis, 8 MG PO Q8H, #30 TAB 2 Refills Prov:CELESTE MCCLELLAN [facility] ONC 03/30/17 Reported Medications Triamcinolone Acetonide 0.1% Oint 15 Gm Tube (TRIAMCINOLONE ACETONIDE 0.1% 15 GM TUBE) 15 Gm Oint...g., 15 GM TP, TUBE 10/22/17 Pyridoxine Hcl (PYRIDOXINE HCL) 100 Mg Tablet, 100 MG PO 10/22/17 Pantoprazole Sodium (PANTOPRAZOLE SODIUM) 40 Mg Tablet.dr, 40 MG PO QDAY, TAB.SR 10/22/17 Loratadine (LORATADINE) 10 Mg Tablet, 10 MG PO 10/22/17 Fluconazole (FLUCONAZOLE) 200 Mg Tablet, 200 MG PO QDAY 10/22/17 Cyanocobalamin (Vitamin B-12) (B-12) 1,000 Mcg Tablet.er, 1000 MCG PO 10/22/17 Cholecalciferol (Vitamin D3) (VITAMIN D3) 1,000 Unit Tablet, 1000 UNIT PO, TAB 10/22/17 Bupropion Hcl (BUPROPION HCL SR) 150 Mg Tablet.er, 150 MG PO QDAY 10/22/17 Acyclovir (ACYCLOVIR) 800 Mg Tablet, 800 MG PO BID, #90 TAB 10/22/17 Nystatin (Nystatin) 100,000 Unit/Ml Oral.susp, 5 ML QID 10/22/17 Cefpodoxime Proxetil (CEFPODOXIME PROXETIL) 200 Mg Tablet, 200 MG PO BID 10/22/17 Discontinued Reported Medications Ibuprofen (IBUPROFEN) 200 Mg Tablet, 1 TAB PO Q6H Y for PAIN/HEADACHE, TAB 03/13/17 Multivitamin (MULTI VITAMIN DAILY) 1 Each Tablet, 1 EACH PO DAILY 03/12/17 Aspirin (ASPIR 81) 81 Mg Tablet.dr, 81 MG PO QDAY, TAB 03/12/17 Med[place]ont-3 Fatty Acids/Fish Oil (FISH OIL 1,000 MG SOFTGEL) 1 Each Capsule, 1 EACH PO TID, CAPSULE 03/12/17 Discontinued Scripts Baclofen (BACLOFEN) 10 Mg Tablet, 10 MG PO TID Y for HICCUPS, #30 TAB 1 Refill Prov:CELESTE MCCLELLAN [employer], ONC 04/24/17 Levofloxacin 500 Mg Tab (LEVAQUIN 500 MG TAB) 500 Mg Tablet, 500 MG PO DAILY for 5 Days, #5 TAB Prov:CELESTE MCCLELLAN [employer], ONC 04/07/17 Prednisone (PREDNISONE) 20 Mg Tablet, 100 MG PO QDAY for 5 Days, #25 TAB 2 Refills Take 100mg orally on days 1-5 every 42 day cycle of chemotherapy Prov:ECLESTE MCCLELLAN [employer], ONC 03/30/17 Oncology Note Patient Name: Houston Thurman Unit Number: [id number] Date of : 1955 Patient Status: Registered Recurring Attending Doctor: Brandy Masterson MD History of Present Illness History of Present Illness Evaluation Evaluation Date: Oct 22, 2017 Evaluation Time: 09:45 Primary Care Provider Primary Care Provider: Marly Accompanied by Accompanied by: Eleni Significant other Last seen by : Bethel Johnson MD and Transplant team on 10/05/17 ; 10/18/17 Chief Complaint Chief Complaint: Follow up management of Stage KELSEY MANTLE CELL LYMPHOMA, s/p Auto SCT (Day +33 (10/22/17) Cell Boost Infusion); Day +77 (10/22/17) Auto SCT with R-Beam Diagnosis KELSEY MANTLE CELL LYMPHOMA, s/p auto SCT Oncology History Initial disease was presented with acute onset of dyspnea found to have cervical LAD Initially the plan was for total 6 cycles of R CHOP alternated with RDHAP with each cycle administered every [address]. [address] H AP he's course was complicated by acute kidney injury and hence we switched cisplatin to oxaliplatin (based on abstract at [facility] 2017 by danielle et al) He completed R-CHOP- RDHAP- R CHOP- RDHAX During PET CT I's back after 2 cycles showed a complete metabolic remission PET/CT post 4 cycles of chemotherapy showed a deauville 3 complete metabolic remission He subsequently underwent successful stem cell collection Post collection we omitted RCHOP and instead of RDHAX we administered only Rituximab plus Cytarabine in light of oxaliplatin induced adverse effects. - on 08/11/2017 He then underwent an AutoHDT with R-BEAM - unfortunately he was diagnosed with Graft Failure - Bone marrow Biopsy done showed hypocellularity and no evidence of MCL - on 09/16/2017 He was then given a sten cell boost - Admitted with Neutropenic fever, then Discharged. . HPI HPI: Mr. Cuca Conrad, is a 62-year-old male patient has stage KELSEY Mantle Cell Lymphoma : DX 02/2017. Initial disease was presented with acute onset of dyspnea found to have cervical LAD. Initial plan was for total 6 cycles of R CHOP , alternating with RDHAP with each cycle administered every 21 days. However post RDHAP his course was complicated by JOEL and switched cisplatin to oxaliplatin. Status post R-CHOP- RDHAP- R CHOP- RDHAX. Bone marrow biopsy showed markedly hypercellular marrow 90% average cellularity with active trilineage hematopoiesis and no morphologic or immunophenotypic phenotype evidence of disease. S/post Auto SCT with R Beam conditioning.Patient's presents to the clinic today accompany by his . He was recently discharged from the transplant Center in [place] he reports being in his usual state of health. He denies any new symptoms no new complaints. He denies fevers, chills, sore throat, night sweats, no cough, no dyspnea, no palpitations, no cardiac type chest pain, no nausea vomiting diarrhea, he abdominal pain, he denies any bleeding dark stools, or hematuria he reports weakness although he is able to walk half a mile a day with breaks as needed, he is very pleased that he is back home. He presented to clinic today with nose bleeding. he is hemodynamically stable, in no acute distress. Denies SOB, or cardiac type chest pain. "Day 0' on 08/11/2017 c/b engraftment with subsequent fever infection leading to recurrent persistent pancytopenia and neutropenic fevers. - 09/10/2017 which was absent for any trilineage hematopoiesis. Given prolonged pancytopenia, patient underwent stem cell boost infusion - 09/16/17 S/p Bone marrow biopsy. -Day +77 (10/22/17) Auto SCT with R-Beam -Day +33 (10/22/17) Cell Boost Infusion Diagnostic Studies Result Diagram: 10/22/17 0743 10/22/17 0743 Past Medical/Surgical Hx PMH PAST MEDICAL HISTORY Lymphoma. mantel cell multiple sites Malignant neoplasm PAST SURGICAL HISTORY Mediport placement ORIF elbow fracture ORIF tibia & fibula fractures Tonsillectomy FAMILY HISTORY The patients father, paternal aunt and maternal grandfather have a history of cancer. SOCIAL HISTORY Patient is , has three children and grandchildren. 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 He drinks a beer every two to three months. Denies any abuse of illicit drugs. He smoked one pack per week for 30 years, and chewed a can per week for seven years, but he quit tobacco in March 2016. Social/Occupational History Social History: Social History This is a 62 Yr old White male, he is M and has [3] Children Hx Smoking: Yes Smoking Status: Former Smoker Exposure to Second Hand Smoke?: No When Quit Tobacco?: QUIT WHEN STARTED CHEMO, on wellbutrin. Allergies & Medications Allergies & Medications Cisplatin and Oxaliplatin Home Meds Reported Medications Acyclovir 800 mg by mouth twice a day wellbutrin 150 Po Qday Cefpodoxime Vantin 200mg PO BID Cholecalciferol Vitamin D3 1000units Po daily Fuconazole 400 mg PO Daily Prochlorperazine Maleate (Compazine) 10 Mg Tablet, 10 MG PO Q6H, # Lorazepam (LORAZEPAM) 1 Mg Tab, 1 TAB PO Q4-6H Y for nausea, Ondansetron (ZOFRAN ODT) 8 Mg Tab.rapdis, 8 MG PO Q8H 1 Multivitamin (MULTI VITAMIN DAILY) 1 Each Tablet, 1 EACH PO DAILY 03/12/17 Docusate Colace 100 mg Po BID PRN Loratadine 10 mg Po PRN for bone pain Nystatin/ Mycostatin 100,000 unit/ml oral swish and spit by mouth qID PRN Protonix 40 mg by mouth daily Pyridoxine Vitamin B6 100 mg Tab Po Daily Triamcinolone kenalog 0.1% topical PRN itchiness Hospital admin filgrastim-and (Zarxio) Sc injection 480mcg/0.8mL ROS/Exam Review of Systems Constitution: Positive for Appetite/Weight Change, Denies Fever/Chills/Sweating , Denies Recent Infection, + reports fatigue. HEENT: No EARS: Tinnitus, No NOSE: Nasal Discharge, No THROAT: Sore Throat, No EYES: Dipolpia, No EARS: Hearing Problems, No NOSE: Epistaxis, No THROAT: Mouth Ulcers, No EYES: Vision Change, No OTHER Respiratory: Shortness of Breath (On exertion) Cardiovascular: No Chest Pain, No Orthopnea, No Edema, No Palpitations, No OTHER Gastrointestinal: Nausea, No Vomitting, No Diarrehea, No Constipation, No Heart Burn, No Swallowing Difficulties, No Abdominal Pain, No Other Gentiourinary: No Hematuria, No Dysuria, No Nocturia, No Other Musculoskeletal: No Muscle Pain, No Joint Pain, Bone Pain, No Other Hematological: +nose Bleeding, Weakness, No Enlarged Lyph Nodes, No Bruising, Fatigue, No Other Skin: No Skin Rash, No Lumps, No Erythema, No Dry Skin, No Moist Skin, No Other Psychiatric: Anxiety Vital Signs Vital Signs Temperature: 97.4 Pulse: 96 BP Systolic: 124 BP Diastolic: 58 Respiratory Rate: 16 O2 SAT: 98 O2 Delivery: Height (feet) Height (inches) 71.00 Weight lb: 169 Weight oz: Weight Kg (Leon): [phone] Pain: 0 Physical Exam PERFORMANCE STATUS: ECOG 1 Strenuous physical activity restricted; fully ambulatory and able to carry out light work. General: Looks Stable HEENT: HEAD:Atraumatic, No EYES: Conjuctivitis, No EYES: Icterus, No MOUTH: Mucocitis, No MOUTH: Oral Thrush, No SINUS: Tenderness to Palpation, No Other Neck: Supple, No Cervical Lymphadenopathy, No Subclavicular Lymphadopathy, No Thyromegaly, No Other Lungs: Clear to Auscultation, Percussion Bilaterally Heart: Regular Rate and Rhythm, No Gallops, No Murmurs, No Clicks, No Rubs, No Other Abdomen: Soft and Nontender, No Hepatosplenomegaly, No Masses, No Other Extremities: No Cyanosis, No Clubbing, No Edema, No Other Lymphatics: No Peripheral Lymphadenopathy, No Other Hematology: nose bleeding, patient reports clots while blowing his nose. Psychiatric: Mood appears normal, Affect appears normal Skin: No Skin Rashes, No Bruising, No Purpura, No Moist Desquamation, No Dry Desquamation, No Erythema, No Mild Erythema, No Moderate Erythema, No Severe Erythema, No Induration, No Other Breast: No No Masses, No No Nipple Discharge, No No Skin Changes, No Other Assessment Mr. Cuca Conrad, is a 62-year-old male patient has stage KELSEY Mantle Cell Lymphoma : DX 02/2017. Initial disease was presented with acute onset of dyspnea found to have cervical LAD Diagnostics Labs WBC 2.0; hemoglobin 7.6; hematocrit 21.5; Platelets 14; ANC 1.2;BUN 28; Creatinine 1.8; Mag 1.7 1. Stage KELSEY Mantle Cell Lymphoma : DX 02/2017 S/p Auto SCT with R Beam conditioning. Status post R-CHOP- RDHAP- R CHOP- RDHAX. Bone marrow biopsy showed markedly hypercellular marrow 90% average cellularity with active trilineage hematopoiesis and no morphologic or immunophenotypic phenotype evidence of disease "Day 0' on 08/11/2017 c/b engraftment with subsequent fever infection leading to recurrent persistent pancytopenia and neutropenic fevers. - 09/10/2017 which was absent for any trilineage hematopoiesis. Given prolonged pancytopenia, patient underwent stem cell boost infusion - 09/16/17 S/p Bone marrow biopsy. -Day +78 (10/23/17) Auto SCT with R-Beam -Day +34 (10/23/17) Cell Boost Infusion 2. Anemia. Hgb 7.9 Patient received last Blood product transfusion 10/18/2017. Will Transfuse 2PRBC today per Transplant team recommendations. Please admin 20mg of Lasix IV after each PRBC transfusion. 3. Electrolyte Imbalance. Please admin Mag2g IV x1 today 4. Thrombocytopenia. platelet 14. in the setting of symptomatic nose bleeding. Please transfuse 1 unit of Platelet today 5. Chronic Kidney Disease. Likely 2/2 cisplatin treatment, baseline creatinine is 1.21.5. Estimated creatinine clearance 54.2 Avoid NSAID, nephrotoxic medication, renally adjust medications. 6. REJI positive Speckled reveal ed by recent test result. Rheumatology referral 7. Chronic Intermittent Constipation. managed with stool softener currently on colace 100 mg PO BID PRN. 8. ID. afebrile. Denies fevers at home, chills, shivering, Temp. 97.4 Currently on acyclovir, fluconazole ppx. No PCP ppx. G6PD 8.7 , per Benign Hem recommend avoid dapsone, Hold Bactrim for now given myelosuppression. Discuss options Atovaquone OP as alternative once counts have completely recovered. 9. Smoking cessation. patient reports doing very well with cravings, only having occasional urges, continues to take Wellbutrin. 10. Anxiety. Therapeutic communication provided today, and encouraged to take anxiolytic as prescribed PRN. PLAN RNs make Certain ALL BLOOD PRODUCTS are; LEUKO-REDUCED, IRRADIATED, CMV NEGATIVE. - Anemia. Hgb 7.9 Patient received last Blood product transfusion 10/18/2017. Will Transfuse 2PRBC today per Transplant team recommendations. Please admin 20mg of Lasix IV after each PRBC transfusion. - Electrolyte Imbalance. Please admin Mag2g IV x1 today - Thrombocytopenia. platelet 14K in the setting of symptomatic nose bleeding. Please transfuse 2 units of Platelet today. - Patient to return for labs on Thursday10/25/17, and to have Platelet 2 units ready for possible transfusion. 1. Labs 3x week CBC,CMP, MG, Phos, LDH, until the patient is GCSF free, and transfusion free 2. Lab draw today, Lab as above on 10/24/17Thursday with PRN Transfusion support as clinically indicated 3. GCSF per ANC <1000 (480mcg Sc) 4. Transfuse Platelet if </=10K or symptomatic 5. Transfuse PRBC if Hgb </=7.0 or symptomatic 6. RNs to notify MD/GRAHAM with lab values STAT 7. RNs make Certain ALL BLOOD PRODUCTS are; LEUKO-REDUCED, IRRADIATED, CMV NEGATIVE. 8.PLEASE premedicate with 325 mg by mouth of Tylenol PLUS 25 mg of Benadryl by mouth, at least 30 minutes prior to beginning of transfusion 9. Rheumatology referral for REJI positive Speckled 10. Discuss options Atovaquone OP as alternative once counts have completely recovered for PCP ppx. patient G6PD 8.7 ( 10/09/2017) 11. Patient and aware and understand of the indications to report to the cancer center, Immediately with any concern or report to the ER to include fever of 101 or greater, chills, spontaneous bleeding, chest pain, abdominal pain, SOB, or any symptoms requiring medical attention. TIME SPENT: 45 minutes 40 > minutes includes but not limited to discussion, counselling and co-ordination~ of care. Discussion with other health care providers, record review, review of lab work,medication review, diagnostic tests. Plan discussed extensively with patient and spouse. All the questions answered today at length. Thank you for the opportunity to be involved in the care of Cuca Conrad. Billing Level: Return visit 5 Assessment and Plan Copies To 1: BRANDY MASTERSON MD; RYANN JOHNSON MD, SARA [employer], ONC Oct 23, 2017 18:18
[2017-10-23] MEDS: FUROSEMIDE 20 MG/2 ML VIAL IVP PRN ×2 (19:38→23:00)
[2017-10-24 00:42] VITALS: BP 120/81
[2017-10-25 08:51] VITALS: BP 114/81
[2017-10-25 08:56] LABS: PLATELET COUNT, AUTOMATED 35 K/uL (150-450)
[2017-10-27 10:39] VITALS: BP 108/81
[2017-10-27 11:03] LABS: PLATELET COUNT, AUTOMATED 25 K/uL (150-450)
[2017-10-27] MEDS: HEPARIN FLSH (PORT) 500 UN/5ML IVP PRN (11:57)
[2017-10-30 13:55] VITALS: BP 102/61
[2017-11-01 13:10] VITALS: BP 99/66
[2017-11-01 13:39] LABS: PLATELET COUNT, AUTOMATED 25 K/uL (150-450)
[2017-11-03 13:16] VITALS: BP 104/71
[2017-11-03 13:48] LABS: PLATELET COUNT, AUTOMATED 30 K/uL (150-450)
[2017-11-05 09:15] LABS: PLATELET COUNT, AUTOMATED 33 K/uL (150-450)
[2017-11-05 10:49] VITALS: BP 98/64
[2017-11-08 08:25] VITALS: BP 105/65
[2017-11-08 09:03] LABS: PLATELET COUNT, AUTOMATED 40 K/uL (150-450)
[2017-11-10 15:41] LABS: PLATELET COUNT, AUTOMATED 48 K/uL (150-450)
[2017-11-10 15:53] VITALS: BP 113/60
[2017-11-12 09:14] VITALS: BP 107/68
[2017-11-12 09:21] LABS: PLATELET COUNT, AUTOMATED 54 K/uL (150-450)
[2017-11-15 08:26] VITALS: BP 112/71
[2017-11-15 08:29] LABS: PLATELET COUNT, AUTOMATED 60 K/uL (150-450)
[2017-11-17 10:11] VITALS: BP 108/76
[2017-11-17 10:15] LABS: PLATELET COUNT, AUTOMATED 63 K/uL (150-450)
[2017-11-19 08:41] VITALS: BP 124/72
[2017-11-19 09:10] LABS: PLATELET COUNT, AUTOMATED 72 K/uL (150-450)
[2017-11-22 08:27] LABS: PLATELET COUNT, AUTOMATED 70 K/uL (150-450)
[2017-11-22 09:15] VITALS: BP 112/76
[2017-11-24 09:32] VITALS: BP 107/69
[2017-11-24 09:42] LABS: PLATELET COUNT, AUTOMATED 77 K/uL (150-450)
[2017-12-03 11:20] LABS: PLATELET COUNT, AUTOMATED 78 K/uL (150-450)
[2017-12-10 08:55] VITALS: BP 118/73
[2017-12-10 09:17] LABS: PLATELET COUNT, AUTOMATED 73 K/uL (150-450)
[2017-12-10] MEDS: LIDOCAINE/SOD BICARB 8.4% SYR ID PRN (09:36)
[2017-12-10] MEDS: NS(*) 0.9% 500 ML BAG 500 ML IV PRN (09:37)
[2017-12-10 15:45] VITALS: BP 144/81
[2017-12-10] MEDS: HEPARIN FLSH (PORT) 500 UN/5ML IVP PRN (15:45)
[2017-12-17 10:55] VITALS: BP 123/72
[2017-12-17 11:11] LABS: PLATELET COUNT, AUTOMATED 69 K/uL (150-450)
--- NOTE | 2017-12-17 13:47 | Oncology Progress Note ---
History of Present Illness Evaluation Evaluation Date: Dec 17, 2017 Evaluation Time: 12:00 Accompanied by Accompanied by: Eleni, Significant other Last seen by : Bethel Johnson MD and Transplant team on 10/05/17; 10/18/17 Chief Complaint Chief Complaint Follow up management of Stage KELSEY MANTLE CELL LYMPHOMA, s/p Auto SCT (Day +89 (12/17/17) Cell Boost Infusion); Day +133 (12/17/17) Auto SCT with R-Beam Oncology History Oncology History Initial disease was presented with acute onset of dyspnea found to have cervical LAD Initially the plan was for total 6 cycles of R CHOP alternated with RDHAP with each cycle administered every [address]. [address] H AP he's course was complicated by acute kidney injury and hence we switched cisplatin to oxaliplatin (based on abstract at [facility] 2017 by danielle et al) He completed R-CHOP- RDHAP- R CHOP- RDHAX During PET CT I's back after 2 cycles showed a complete metabolic remission PET/CT post 4 cycles of chemotherapy showed a deauville 3 complete metabolic remission He subsequently underwent successful stem cell collection Post collection we omitted RCHOP and instead of RDHAX we administered only Rituximab plus Cytarabine in light of oxaliplatin induced adverse effects. - on 08/11/2017 He then underwent an AutoHDT with R-BEAM - unfortunately he was diagnosed with Graft Failure - Bone marrow Biopsy done showed hypocellularity and no evidence of MCL - on 09/16/2017 He was then given a sten cell boost - Admitted with Neutropenic fever, then Discharged. . Treatment Treatment Initial plan was for total 6 cycles of R CHOP , alternating with RDHAP with each cycle administered every 21 days. However post RDHAP his course was complicated by JOEL and switched cisplatin to oxaliplatin. -Status post R-CHOP- RDHAP- R CHOP- RDHAX. - on 08/11/2017 He then underwent an AutoHDT with R-BEAM - 09/16/2017 He was then given a stm cell boost - first round of Maintenance Rituximab HPI HPI Mr. Cuca Conrad, is a 62-year-old male patient has stage KELSEY Mantle Cell Lymphoma : DX 02/2017. Currently on maintenance Rituximab 12/10/17 q 2 months. Patient's presents to the clinic today accompany by his for follow up on his diagnosis. Patient has been doing remarkably well, with no need for blood products transfusion support for almost two months. Besides an episode of nausea,vomiting and diarrhea the first round of maintenance Rituximb, he reports no other issues. Patient is AAOX4 and hemodynamically stable, he has gain some weight, denies any new symptoms no new complaints. He denies fevers, chills, sore throat, night sweats, no cough, no dyspnea, no palpitations, no cardiac type chest pain, no nausea vomiting diarrhea, he abdominal pain, he denies any bleeding dark stools, or hematuria he reports weakness although he is able to walk half a mile a day with breaks as needed. Although his counts have recovered and remained stable, patient is frustrated as he would like his numbers to be higher. Initial disease was presented with acute onset of dyspnea found to have cervical LAD. Initial plan was for total 6 cycles of R CHOP, alternating with RDHAP with each cycle administered every 21 days. However post RDHAP his course was complicated by JOEL and switched cisplatin to oxaliplatin. Status post R-CHOP- RDHAP- R CHOP- RDHAX. Bone marrow biopsy showed markedly hypercellular marrow 90% average cellularity with active trilineage hematopoiesis and no morphologic or immunophenotypic phenotype evidence of disease. S/post Auto SCT with R Beam conditioning. He was recently discharged from the transplant Center in [place] he reports being in his usual state of health. He is planning to go camping o 12/29/2017. safety measures and neutropenic precautions teachings reinforced. he is aware and agrees to being extra cautious. I informed patient and his that if his ANC is </=1000K he may not go camping. "Day 0' on 08/11/2017 c/b engraftment with subsequent fever infection leading to recurrent persistent pancytopenia and neutropenic fevers. - 09/10/2017 which was absent for any trilineage hematopoiesis. Given prolonged pancytopenia, patient underwent stem cell boost infusion - 09/16/17 S/p Bone marrow biopsy. -Day +133 (12/17/17 Auto SCT with R-Beam -Day +89 (12/17/17) Cell Boost Infusion Diagnostic Studies Result Diagram: 12/17/17 1102 12/17/17 1102 PMH Patient History: Patient reports no known family medical history. Social/Occupational History Social History: Social History This is a 62 Yr old White male, he is M and has [] Children Hx Smoking: Yes Smoking Status: Former Smoker Exposure to Second Hand Smoke?: No When Quit Tobacco?: QUIT WHEN STARTED CHEMO Allergies & Medications Allergies: Coded Allergies: No Known Drug Allergies (Unverified , 02/24/17) Home Meds Active Scripts Prochlorperazine Maleate (Compazine) 10 Mg Tablet, 10 MG PO Q6H, #30 TAB 3 Refills Prov:[facility], ONC 04/28/17 Allopurinol (Allopurinol) 300 Mg Tablet, 300 MG PO DAILY, #30 TAB 9 Refills Prov:[facility], ON[facility] 03/30/17 Lorazepam (LORAZEPAM) 1 Mg Tab, 1 TAB PO Q4-6H PRN for nausea, #30 TAB 1 Refill Prov:[facility], [facility] 03/30/17 Ondansetron (ZOFRAN ODT) 8 Mg Tab.rapdis, 8 MG PO Q8H, #30 TAB 2 Refills Prov:[facility], [facility] 03/30/17 Reported Medications Atovaquone (MEPRON) 750 Mg/5 Ml Oral.susp, 750 MG PO 12/10/17 Cyanocobalamin (Vitamin B-12) (Vitamin B12) 2,500 Mcg Tab.chew, 1000 12/10/17 Pantoprazole Sodium (PANTOPRAZOLE SODIUM) 40 Mg Tablet.dr, 40 MG PO QDAY, TAB.SR 10/22/17 Loratadine (LORATADINE) 10 Mg Tablet, 10 MG PO 10/22/17 Cyanocobalamin (Vitamin B-12) (B-12) 1,000 Mcg Tablet.er, 1000 MCG PO 10/22/17 Cholecalciferol (Vitamin D3) (VITAMIN D3) 1,000 Unit Tablet, 1000 UNIT PO, TAB 10/22/17 Acyclovir (ACYCLOVIR) 800 Mg Tablet, 800 MG PO BID, #90 TAB 10/22/17 Nystatin (Nystatin) 100,000 Unit/Ml Oral.susp, 5 ML QID 10/22/17 Discontinued Reported Medications Triamcinolone Acetonide 0.1% Oint 15 Gm Tube (TRIAMCINOLONE ACETONIDE 0.1% 15 GM TUBE) 15 Gm Oint...g., 15 GM TP, TUBE 10/22/17 Pyridoxine Hcl (PYRIDOXINE HCL) 100 Mg Tablet, 100 MG PO 10/22/17 Fluconazole (FLUCONAZOLE) 200 Mg Tablet, 200 MG PO QDAY 10/22/17 Bupropion Hcl (BUPROPION HCL SR) 150 Mg Tablet.er, 150 MG PO QDAY 10/22/17 Cefpodoxime Proxetil (CEFPODOXIME PROXETIL) 200 Mg Tablet, 200 MG PO BID 10/22/17 Review of Systems Constitution: Denies Appetite/Weight Change, Denies Fever/Chills/Sweating, Denies Recent Infection, Denies Other HEENT: No EARS: Tinnitus, No NOSE: Nasal Discharge, No THROAT: Sore Throat, No EYES: Dipolpia, No EARS: Hearing Problems, No NOSE: Epistaxis, No THROAT: Mouth Ulcers, No EYES: Vision Change, No OTHER Respiratory: No Cough, No Expectoration, No Hemoptysis, No Shortness of Breath, No OTHER Cardiovascular: No Chest Pain, No Orthopnea, No Edema, No Palpitations, No OTHER Gastrointestinal: No Nausea, No Vomitting, No Diarrehea, No Constipation, No Heart Burn, No Swallowing Difficulties, No Abdominal Pain, No Other Gentiourinary: No Hematuria, No Dysuria, No Nocturia, No Other Musculoskeletal: Bone Pain Hematological: Weakness, Fatigue Skin: No Skin Rash, No Lumps, No Erythema, No Dry Skin, No Moist Skin, No Other Psychiatric: Anxiety Vital Signs Vital Signs Temperature: 98.1 Pulse: 72 BP Systolic: 123 BP Diastolic: 72 Respiratory Rate: 16 O2 SAT: 95 O2 Delivery: Height (feet) Height (inches) 71.00 Weight lb: 169 Weight oz: Weight Kg (Leon): [phone] Pain: 0 ECOG-1 Physical Exam General: Looks Stable, Well Developed, Other (In No acute distress) HEENT: HEAD:Atraumatic; No EYES: Conjuctivitis, No EYES: Icterus, No MOUTH: Muc ocitis, No MOUTH: Oral Thrush, No SINUS: Tenderness to Palpation, No Other Neck: Supple Lungs: Clear to Auscultation, Percussion Bilaterally Heart: Regular Rate and Rhythm Abdomen: Soft and Nontender Extremities: No Cyanosis, No Clubbing, No Edema, No Other Lymphatics: No Peripheral Lymphadenopathy, No Other Psychiatric: Mood appears normal, Affect appears normal Skin: No Skin Rashes, No Bruising, No Purpura, No Moist Desquamation, No Dry Desquamation, No Errythema, No Mild Errythema, No Moderate Errythema, No Severe Errythema, No Induration, No Other Breast: No Masses Assessment and Plan Assessment and Plan Mr. Cuca Conrad, is a 62-year-old male patient has stage KELSEY Mantle Cell Lymphoma : DX 02/2017. Currently on maintenance Rituximab 12/10/17 q 2 months. Patient's presents to the clinic today accompany by his for follow up on his diagnosis. Patient has been doing remarkably well, with no need for blood products transfusion support for almost two months. Besides an episode of nausea,vomiting and diarrhea the first round of maintenance Rituximb 12/10/17, he reports no other issues. Patient is AAOX4 and hemodynamically stable, he has gain some weight, denies any new symptoms no new complaints. He is planning to go camping o 12/29/2017. safety measures and neutropenic precautions teachings reinforced. he is aware and agrees to being extra cautious. I informed patient and his that if his ANC is </=1000K he may not go camping. They both agree with the plan and recommendations. Diagnostics Labs WBC 2.6; hemoglobin 10.8.; hematocrit 30.6; Platelets 69; ANC 1.9;BUN 28; Creatinine 1.50 1. Stage KELSEY Mantle Cell Lymphoma : DX 02/2017 S/p Auto SCT with R Beam conditioning. Status post R-CHOP- RDHAP- R CHOP- RDHAX. Bone marrow biopsy showed markedly hypercellular marrow 90% average cellularity with active trilineage hematopoiesis and no morphologic or immunophenotypic phenotype evidence of disease "Day 0' on 08/11/2017 c/b engraftment with subsequent fever infection leading to recurrent persistent pancytopenia and neutropenic fevers. - 09/10/2017 which was absent for any trilineage hematopoiesis. Given prolonged pancytopenia, patient underwent stem cell boost infusion - 09/16/17 S/p Bone marrow biopsy. -Day +77 (10/22/17) Auto SCT with R-Beam -Day +33 (10/22/17) Cell Boost Infusion 2. Chronic Kidney Disease. Likely 2/2 cisplatin treatment, baseline creatinine is 1.2 ~ 1.5. Estimated creatinine clearance 54.2 Avoid NSAID, nephrotoxic medication, renally adjust medications. 3. REJI positive Speckled reveal ed by recent test result. Rheumatology referral 4. Chronic Intermittent Constipation. managed with stool softener currently on colace 100 mg PO BID PRN. 5. ID. afebrile. Denies fevers at home, chills, shivering, Temp. 97.4 Currently on acyclovir, fluconazole ppx. No PCP ppx. G6PD 8.7 , per Benign Hem recommend avoid dapsone, Hold Bactrim for now given myelosuppression. Discuss options Atovaquone OP as alternative once counts have completely recovered. 6. Smoking cessation. patient reports doing very well with cravings, only having occasional urges, continues to take Wellbutrin. 7. Anxiety. Therapeutic communication provided today, and encouraged to take anxiolytic as prescribed PRN. 8. Anemia. resolving Hgb 10.8. Patient received last Blood product transfusion 10/18/2017. Will continue to monitor counts tightly. 9. Electrolyte Imbalance. will replete Lytes PRN. PLAN 1. Labs weekly CBC,CMP, MG every 2 weeks. until the patient is GCSF free and transfusion free 2. Continue GI ppfx with antiemetics, stool softeners, and Imodium PRN.Patient agrees to notify Cancer center if any diarrhea. 3. Recommend Nutrition consult and PT eval & Treatment patient declined at present moment. 4. Transfuse Platelet if </=10K or symptomatic 5. Transfuse PRBC if Hgb </=7.0 or symptomatic 6. RNs to notify MD/GRAHAM with lab values STAT 7. RNs make Certain ALL BLOOD PRODUCTS are; LEUKO-REDUCED, IRRADIATED, CMV NEGATIVE. 8.PLEASE premedicate with 325 mg by mouth of Tylenol PLUS 25 mg of Benadryl by mouth, at least 30 minutes prior to beginning of transfusion 9. Rheumatology referral for REJI positive Speckled 10. GCSF per ANC <1000 (480mcg Sc) 11. Discuss options Atovaquone OP as alternative once counts have completely recovered for PCP ppx. patient G6PD 8.7 ( 10/09/2017) 12. Next Bone marrow biopsy due 09/16/2018. 13. Patient and aware and understand of the indications to report to the cancer center, Immediately with any concern or report to the ER to include fever of 101 or greater, chills, spontaneous bleeding, chest pain, abdominal pain, SOB, or any symptoms requiring medical attention. Education: Patient instructed to call Clinic or go to ER immediately if any chills, fevers, SOB, Temp>/=100.4,chills, cardiac type chest pain, bleeding, excessive bruising, headaches, sudden blurry vision, abdominal pain, difficulty swallowing, diarrhea, and skin rashes, oozing TIME SPENT: 30 minutes 25 > minutes includes but not limited to discussion, counselling and co-ordination~ of care. Discussion with other health care providers, record review, review of lab work,medication review, diagnostic tests. Plan discussed extensively with patient and spouse. All the questions answered today at length. Thank you for the opportunity to be involved in the care of Cuca Conrad. Billing Level: Return visit 4 CC Copies to: BRANDY MASTERSON MD; RYANN JOHNSON MD ; DEMARCUS CARVAJAL-Dany, ONC Dec 17, 2017 13:47
[2017-12-25 09:14] VITALS: BP 109/66
[2017-12-25 09:18] LABS: PLATELET COUNT, AUTOMATED 62 K/uL (150-450)
[2017-12-29 08:48] VITALS: BP 119/79
[2017-12-29 09:00] LABS: PLATELET COUNT, AUTOMATED 61 K/uL (150-450)
[2018-01-07 09:41] VITALS: BP 113/85
[2018-01-07] MEDS: HEPARIN FLSH (PORT) 500 UN/5ML IVP PRN (09:43)
[2018-01-07] MEDS: LIDOCAINE/SOD BICARB 8.4% SYR ID PRN (09:43)
[2018-01-07 09:55] LABS: PLATELET COUNT, AUTOMATED 58 K/uL (150-450)
--- NOTE | 2018-01-07 17:03 | ONCOLOGY FOLLOW UP NOTE ---
EVENT DATE: January 07, 2018 DIAGNOSIS Mantle cell lymphoma lymph nodes of multiple regions. CHIEF COMPLAINT Patient is here today for followup of his mantle cell lymphoma, on maintenance rituximab therapy. HEMATOLOGY/ONCOLOGY HISTORY Patient is a 62-year-old male who has the following oncologic history: February 2017, he presented with difficulty breathing and noticed right tonsil was significantly enlarging, so he had a CT neck which demonstrated tonsillar enlargement and cervical adenopathy. He had an excisional biopsy with bilateral tonsillectomy, and the pathology came back positive for mantle cell lymphoma, immunohistochemistry positive for CD20, cyclin D1, BCL2, CD5; negative for CD10 and BCL6. Ki-67 was 20%. FISH was positive for translocation 11;14. He had CT neck, chest, abdomen, and pelvis at the same time which showed bilateral tonsillar enlargement, bilateral axillary, cervical, subcarinal, splenomegaly at 14 cm, bilateral inguinal lymph nodes, retroperitoneal adenopathy, so the patient was diagnosed with mantle cell lymphoma involving both tonsils with significant expansion of the right tonsil by lymphoma. Ki-67 (MIB-1) immunohistochemistry study labels 30% to 35% of the lymphoma cells. Immunohistochemistry showed that the lymphoma cells to be diffusely positive for CD20, CD5, and cyclin D1 and to be negative for CD23, CD10, CD3, and BCL6. The flow cytometry showed that around 75% of the cells to be abnormal, monotypic population of B-cells, positive for lambda light chain, CD19, CD20, and CD5. TP53 mutation was negative. Bone marrow biopsy showed involvement of the bone marrow with 40% involvement by mantle cell lymphoma. PET scan done on the February showed numerous lymph nodes in the neck bilaterally at levels 2, 3, 4, and 5, SUV maximum of 3.4, with mildly enlarged supraclavicular nodes bilaterally with SUV 2.2. There is mild diffuse lymphadenopathy in the mediastium, internal mammary chains, axillae, and deep to the pectoral musculature bilaterally. Largest was 3.5 cm with SUV 4.1. There was diffuse adenopathy throughout the abdomen and pelvis, all of which are mildly FDG avid. There was gastrohepatic ligament, peripancreatic, cyndie hepatis, aortocaval, and retrocaval left periaortic adenopathy in the abdomen. In the pelvis, there was diffuse bilateral iliac chain and inguinal lymph node enlargement. Maximum SUV was 4.1. Maximum size was 3.1 cm. There was unusual focal activity near the base of the penis with SUV maximum of 9. The penis is enlarged at 15.5 cm with SUV 3.8. Patient was staged with stage KELSEY mantle cell lymphoma with a MIPI score of 1 and a CMIPI score of low intermediate risk. TP53 mutation was negative. Between February 2017 and May 2017, patient completed R-CHOP/R-DHAP/R-CHOP/R-DHAX, and the patient had renal dysfunction after R-DHAP. Hence, the treatment was switched to R-DHAX, and cisplatin was switched to oxaliplatin. May 2017, he had a PET CT scan which showed complete metabolic remission. Bone marrow biopsy pretransplant was with involvement, meaning that the patient achieved a complete remission. On the July, patient had an auto stem cell transplant planned with R-BEAM conditioning. August 2017, diagnosed with graft failure, and bone marrow biopsy showed markedly hypocellular marrow, less than 5%, with nearly absent trilineage hematopoiesis, and no morphologic evidence of mantle cell lymphoma. On the August, he had a stem cell boost given, 2.5 million stem cells. On the September, which was day 37, he was transfused with red blood cells and platelets, and the patient showed evidence of engraftment after that. Patient started maintenance rituximab therapy in November 2017 with a plan of rituximab infusion every two months for three years. PAST MEDICAL HISTORY 1. Lymphoma. mantel cell, multiple sites. 2. Malignant neoplasm. PAST SURGICAL HISTORY 1. Mediport placement. 2. ORIF elbow fracture. 3. ORIF tibia and fibula fractures. 4. Tonsillectomy. FAMILY HISTORY The patient's father, paternal aunt, and maternal grandfather have a history of cancer. SOCIAL HISTORY Patient is , has three children and grandchildren. 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 He drinks a beer every two to three months. Denies any abuse of illicit drugs. He smoked one pack per week for 30 years and chewed a can per week for seven years, but he quit tobacco in March 2016. CURRENT MEDICATIONS 1. Vitamin D3, 1000 units daily. 2. Vitamin B12, 1000 mcg daily. 3. Lorazepam 1 mg q.6 hours p.r.n. for anxiety or sleep. 4. Zofran 8 mg disintegrating tablet p.r.n. for nausea/vomiting. 5. Protonix 40 mg daily. 6. Compazine 10 mg q.6 hours p.r.n. for nausea/vomiting. 7. Vitamin B6, 200 mg daily. 8. Kenalog 0.1% cream p.r.n. 9. Atovaquone 10 mL for prevention of PCP. ALLERGIES No known drug allergies. REVIEW OF SYSTEMS CONSTITUTIONAL: No appetite or weight change. No fever, chills, or sweating. No recent infection. HEENT: Ears: No tinnitus or hearing problem. Nose: No nasal discharge or epistaxis. Throat: No sore throat or mouth ulcers. Eyes: No diplopia or visual changes. RESPIRATORY: No shortness of breath. No cough, expectoration, or hemoptysis. CARDIOVASCULAR: No chest pain, orthopnea, or paroxysmal nocturnal dyspnea (PND). No edema. No palpitations. GASTROINTESTINAL: Patient has constipation, under control with stool softeners. GENITOURINARY: No hematuria or dysuria. MUSCULOSKELETAL: He has severe stiffness and pain in his joints lately. 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 HEMATOLOGIC/LYMPHATIC: He has bloody nose sometimes when blowing his nose. He is weak, tired, and fatigued, but he is trying to work and be active most of the time. SKIN: No skin rash or lumps. PSYCHIATRIC: No anxiety or depression. PHYSICAL EXAMINATION GENERAL: Looks stable. Well developed, well nourished, and in no acute distress. VITAL SIGNS: Blood pressure 113/85, pulse 76 per minute, respirations 16 per minute, temperature 98, pulse ox 95% on room air. HEENT: Head: Atraumatic. No sinus tenderness to palpation. Eyes: No icterus or conjunctivitis. Mouth and throat: No oral thrush or mucositis. NECK: There are small palpable posterior cervical lymph nodes about 1 cm bilaterally on the neck. Supple. No cervical or supraclavicular lymphadenopathy. LUNGS: Clear to auscultation and percussion bilaterally. HEART: Regular rate and rhythm. No gallops, murmurs, clicks, or rubs. ABDOMEN: Soft and lax. No tenderness. No hepatosplenomegaly. No masses. EXTREMITIES: No cyanosis, clubbing, or edema. LYMPHATICS: No peripheral lymphadenopathy. NEUROLOGICAL: Conscious, alert, and oriented times three. No focal motor or sensory deficits. PSYCHIATRIC: Mood and affect appear normal. SKIN: No skin rash, bruise, or purpuric eruption. DIAGNOSTIC DATA CBC showed white count 2.5, hemoglobin 11.2, hematocrit 31.8, platelets 61,000, MCV 106.9, ANC 1.6. Chem panel totally normal except BUN 24, creatinine 1.6, blood sugar 112. ASSESSMENT 1. Mantle cell lymphoma stage IV with MIPI score of 1 and CMIPI score of low intermittent risk, TP53 mutation was negative, diagnosed in February 2017. Between February 2017 to May 2017, patient completed R-CHOP/R-DHAP/R-CHOP/R-DHAX as the patient developed renal dysfunction after R- DHAP, and cisplatin was switched to oxaliplatin. Patient achieved complete remission by PET scan done in May 2017 and bone marrow biopsy which was negative for involvement. On the July, he had autologous stem cell transplant with R-BEAM conditioning, and in August 2017, he was diagnosed with graft failure. His bone marrow in August 2017 showed markedly hypocellular marrow, less than 5%, with nearly absent trilineage hematopoiesis with no morphologic evidence of mantle cell lymphoma. On the August, a stem cell boost was given with 2.5 million stem cells. On the September, patient required transfusion. This was day 37, and he showed signs of engraftment lately. He is doing fine currently, and he started maintenance rituximab therapy q.2 months for three years in November 2017. I am planning to see him prior to his next dose of rituximab. 2. Severe arthralgias and stiffness in the joints. Patient is advised to try Move-Free with chondroitin sulfate and glucosamine. If it does not work, I am planning to put him on meloxicam as it does not affect the platelet function. 3. Pneumocystis carinii pneumonia prophylaxis with atovaquone. Patient will complete six months of that drug. Then, he will stop it after that as the patient does not like that drug. PLAN 1. Continue followup. 2. Try Move Free with chondroitin sulfate and glucosamine for the joint stiffness. If it does not work, then we are going to put him on meloxicam. 3. Patient to return prior to the next dose of rituximab in January 2018 with CBC, chem panel, LDH, uric acid. 4. Continue atovaquone for a total of six months and stop after that. 5. Patient to contact us for any new concerns or complaints. MTDD
[~2018-01-14] VITALS: Ht 180.3 cm; Wt 79.5 kg
[~2018-01-14 09:30] MED LIST changes: +ACETAMINOPHEN 325 MG TAB PO PRN; +ALTEPLASE RECOMB 2 MG VIAL IVP PRN; +ATOV750O4 PO; +CYAN250013; +DEXTROSE 5%(*) 100 ML BAG 100 ML IVPB PRN; -FILGRASTIM 480 MCG/1.6 ML VIAL SC ONE; +MAGNESIUM SUL* 2 GM/50 ML IVPB 50 ML IVPB ONE; +NS(*) 0.9% 100 ML BAG 100 ML IVPB PRN; +WATER FOR INJ,STERILE 20 ML IVP PRN; +diphenhydrAMINE 25 MG CAP PO PRN; +riTUXimab 500 MG/50 ML SDV 500 MG, riTUXimab 100 MG/10 ML SDV 200 MG in NS(*) 0.9% 1000... IV PRN
[2018-01-14 09:41] VITALS: BP 118/73
[2018-01-14 10:01] LABS: PLATELET COUNT, AUTOMATED 68 K/uL (150-450)
== END 2018-01-19 ==
LOC: SPU 09:30
PROVIDERS: ATTEND Internal Medicine Hematology
DX: C83.10 Mantle cell lymphoma, unspecified site (principal); Z92.21 Personal history of antineoplastic chemotherapy; N17.9 Acute kidney failure, unspecified; D64.81 Anemia due to antineoplastic chemotherapy; D69.59 Other secondary thrombocytopenia; Z87.891 Personal history of nicotine dependence; K59.00 Constipation, unspecified; F41.9 Anxiety disorder, unspecified; R53.1 Weakness; R53.83 Other fatigue
CPT/HCPCS: 36415; 36591; 83615; 83735; 84100; 84550; 85025; 85027; 86850; 86900; 86901; 86920; 96365; 96366; 96375; 96376; 96413; 96415; 99212; 99215; J1642; J1940; J3475; J7030; J7040; J9310; P9016; P9035; P9040; Q0163; 36430; 82040; 82247; 82310; 82374; 82435; 82565; 82947; 84075; 84132; 84155; 84295; 84450; 84460; 84520

== ENCOUNTER → 2018-06-11 | Outpatient (CLI) | payer OTHER ==
[~2018-06-11] MED LIST changes: -ACETAMINOPHEN 325 MG TAB PO PRN; -ALTEPLASE RECOMB 2 MG VIAL IVP PRN; -DEXTROSE 5%(*) 100 ML BAG 100 ML IVPB PRN; -HYDR-4309 PO; +HYDR-653 PO; -MAGNESIUM SUL* 2 GM/50 ML IVPB 50 ML IVPB ONE; -NS(*) 0.9% 100 ML BAG 100 ML IVPB PRN; -WATER FOR INJ,STERILE 20 ML IVP PRN; -diphenhydrAMINE 25 MG CAP PO PRN; -riTUXimab 500 MG/50 ML SDV 500 MG, riTUXimab 100 MG/10 ML SDV 200 MG in NS(*) 0.9% 1000... IV PRN
--- NOTE | 2018-06-11 09:46 | RADIOLOGY IMAGING REPORT ---
FACILITY: [facility] - [place], [place] PATIENT NAME: Houston Thurman : 1955 MR: [id number] V: [id number] EXAM DATE: ORDERING PHYSICIAN: RADHA WILSON TECHNOLOGIST: Location: [facility] Patient: Houston Thurman : 1955 Visit/Account:[id number] Date of Sevice: 06/11/2018 Thoracic spine, three views. HISTORY: Thoracic pain, history of lymphoma. COMPARISON: Lateral chest radiograph 04/07/2017. A right-sided power port catheter tip projects on the superior vena cava 2 cm above the superior cavo atrial junction. A mild dextroscoliosis is present in the midthoracic spine. A mild levoscoliosis i s present in the lower thoracic spine. Small endplate osteophytes and mild loss of disc height are p resent at multiple thoracic and lower cervical levels. The cervical thoracic junction and the operations and maintenance supervisor ior elements are partially obscured. No fractures or focal bony destruction are identified. The aor tic knob is calcified. IMPRESSION: Mild thoracic scoliosis. Mild multilevel degenerative disc disease. Report Dictated By: David Moses MD at 06/11/2018 9:39 AM Report E-Signed By: David Moses MD at 06/11/2018 9:42 AM WSN:[email or web address]
== END ==
LOC: RAD 09:10
PROVIDERS: ATTEND Chiropractor
DX: M41.34 Thoracogenic scoliosis, thoracic region (principal)
CPT/HCPCS: 72070

== ENCOUNTER 2018-07-22 08:56 | Outpatient (RCR) | payer OTHER ==
[2018-05-06 09:04] VITALS: BP 125/85
[2018-05-06] MEDS: HEPARIN FLSH (PORT) 500 UN/5ML IVP PRN (09:17)
[2018-05-06] MEDS: LIDOCAINE/SOD BICARB 8.4% SYR ID PRN (09:17)
[2018-05-06 09:22] LABS: PLATELET COUNT, AUTOMATED 132 K/uL (150-450)
[2018-05-27 09:17] VITALS: BP 112/78
[2018-05-27] MEDS: LIDOCAINE/SOD BICARB 8.4% SYR ID PRN (09:21)
[2018-05-27] MEDS: diphenhydrAMINE 25 MG CAP PO PRN (09:44)
[2018-05-27] MEDS: ACETAMINOPHEN 325 MG TAB PO PRN (09:44)
[2018-05-27] MEDS: NS(*) 0.9% 500 ML BAG 500 ML IV PRN (09:45)
--- NOTE | 2018-05-27 10:47 | EL-TARABILY ONCOLOGY NOTE ---
EVENT DATE: May 27, 2018 DIAGNOSIS Mantle cell lymphoma, lymph nodes of multiple regions. CHIEF COMPLAINT Patient is here today for followup of his mantle cell lymphoma, on maintenance rituximab therapy. HEMATOLOGY/ONCOLOGY HISTORY Patient is a 62-year-old male who has the following oncologic history: In February 2017, he presented with difficulty breathing and noticed right tonsil was significantly enlarging, so he had a CT neck which demonstrated tonsillar enlargement and cervical adenopathy. He had an excisional biopsy with bilateral tonsillectomy, and the pathology came back positive for mantle cell lymphoma, immunohistochemistry positive for CD20, cyclin D1, BCL2, CD5; negative for CD10 and BCL6. Ki-67 was 20%. FISH was positive for translocation 11;14. He had CT neck, chest, abdomen, and pelvis at the same time, which showed bilateral tonsillar enlargement, bilateral axillary, cervical, subcarinal, splenomegaly at 14 cm, bilateral inguinal lymph nodes, retroperitoneal adenopathy, so the patient was diagnosed with mantle cell lymphoma involving both tonsils with significant expansion of the right tonsil by lymphoma. Ki-67 (MIB-1) immunohistochemistry study labels 30% to 35% of the lymphoma cells. Immunohistochemistry showed that the lymphoma cells to be diffusely positive for CD20, CD5, and cyclin D1, and to be negative for CD23, CD10, CD3, and BCL6. The flow cytometry showed that around 75% of the cells to be abnormal, monotypic population of B-cells, positive for lambda light chain, CD19, CD20, and CD5. TP53 mutation was negative. Bone marrow biopsy showed involvement of the bone marrow with 40% involvement by mantle cell lymphoma. PET scan done on March 24, 2017 showed numerous lymph nodes in the neck bilaterally at levels 2, 3, 4, and 5, SUV maximum of 3.4, with mildly enlarged supraclavicular nodes bilaterally with SUV 2.2. There is mild diffuse lymphadenopathy in the mediastinum, internal mammary chains, axillae, and deep to the pectoral musculature bilaterally. Largest was 3.5 cm with SUV 4.1. There was diffuse adenopathy throughout the abdomen and pelvis, all of which are mildly FDG avid. There was gastrohepatic ligament, peripancreatic, cyndie hepatis, aortocaval, and retrocaval left periaortic adenopathy in the abdomen. In the pelvis, there was diffuse bilateral iliac chain and inguinal lymph node enlargement. Maximum SUV was 4.1. Maximum size was 3.1 cm. There was unusual focal activity near the base of the penis with SUV maximum of 9. The penis is enlarged at 15.5 cm with SUV 3.8. Patient was staged with stage KELSEY mantle cell lymphoma with a MIPI score of 1 and a CMIPI score of low intermediate risk. TP53 mutation was negative. Between February 2017 and May 2017, patient completed R-CHOP/R-DHAP/R-CHOP/R-DHAX, and the patient had renal dysfunction after R-DHAP. Hence, the treatment was switched to R-DHAX, and cisplatin was switched to oxaliplatin. In May 2017, he had a PET CT scan which showed complete metabolic remission. Bone marrow biopsy pretransplant was with involvement, meaning that the patient achieved a complete remission. On August 11, 2017, patient had an auto stem cell transplant planned with R-BEAM conditioning. In August 2017, diagnosed with graft failure, and bone marrow biopsy showed markedly hypocellular marrow, less than 5%, with nearly absent trilineage hematopoiesis, and no morphologic evidence of mantle cell lymphoma. On the August, he had a stem cell boost given, 2.5 million stem cells. On the September, which was day 37, he was transfused with red blood cells and platelets, and the patient showed evidence of engraftment after that. Patient started maintenance rituximab therapy in November 2017 with a plan of rituximab infusion every two months for three years. HISTORY OF PRESENT ILLNESS Patient is here today for followup of his mantle cell lymphoma on maintenance rituximab therapy. He is due today for his fourth cycle of maintenance rituximab therapy. He is doing fine currently except for back pain. Other than that he is totally asymptomatic. PAST MEDICAL HISTORY 1. Lymphoma. mantle cell, multiple sites. 2. Malignant neoplasm. PAST SURGICAL HISTORY 1. Mediport placement. 2. ORIF elbow fracture. 3. ORIF tibia and fibula fractures. 4. Tonsillectomy. FAMILY HISTORY The patient's father, paternal aunt, and maternal grandfather have a history of cancer. SOCIAL HISTORY Patient is , has three children and grandchildren. 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 He drinks a beer every two to three months. Denies any abuse of illicit drugs. He smoked one pack per week for 30 years and chewed a can per week for seven years, but he quit tobacco in March 2016. CURRENT MEDICATIONS 1. Vitamin D3, 1000 units daily. 2. Vitamin B12, 1000 mcg daily. 3. Lorazepam 1 mg q.6 hours p.r.n. for anxiety or sleep. 4. Zofran 8 mg disintegrating tablet p.r.n. for nausea/vomiting. 5. Protonix 40 mg daily. 6. Compazine 10 mg q.6 hours p.r.n. for nausea/vomiting. 7. Vitamin B6, 200 mg daily. 8. Kenalog 0.1% cream p.r.n. 9. Atovaquone 10 mL for prevention of PCP. ALLERGIES No known drug allergies. REVIEW OF SYSTEMS CONSTITUTIONAL: No appetite or weight change. No fever, chills, or sweating. No recent infection. HEENT: Ears: No tinnitus or hearing problem. Nose: No nasal discharge or epistaxis. Throat: No sore throat or mouth ulcers. Eyes: No diplopia or visual changes. RESPIRATORY: No shortness of breath. No cough, expectoration, or hemoptysis. CARDIOVASCULAR: No chest pain, orthopnea, or paroxysmal nocturnal dyspnea (PND). No edema. No palpitations. GASTROINTESTINAL: No nausea or vomiting. No diarrhea or constipation. No change in bowel movements. No heartburn or swallowing difficulties. No abdominal pain. No jaundice. No hematemesis, melena, or rectal bleeding. GENITOURINARY: No hematuria or dysuria. MUSCULOSKELETAL: He has back pain. NEUROLOGICAL: No tingling or numbness in the hands or feet. No headaches or convulsions. HEMATOLOGIC/LYMPHATIC: He has limited exercise tolerance. No bleeding or easy bruising. No weakness or fatigue. No enlarged lymph nodes. SKIN: No skin rash or lumps. PSYCHIATRIC: No anxiety or depression. PHYSICAL EXAMINATION GENERAL: Looks stable. Well developed, well nourished, and in no acute distress. VITAL SIGNS: Blood pressure 112/78, pulse 81 per minute, respirations 18 per minute, temperature 97.6, pulse ox 95% on room air. HEENT: Head: Atraumatic. No sinus tenderness to palpation. Eyes: No icterus or conjunctivitis. Mouth and throat: No oral thrush or mucositis. NECK: Supple. No cervical or supraclavicular lymphadenopathy. LUNGS: Clear to auscultation and percussion bilaterally. HEART: Regular rate and rhythm. No gallops, murmurs, clicks, or rubs. ABDOMEN: Soft and lax. No tenderness. No hepatosplenomegaly. No masses. EXTREMITIES: No cyanosis, clubbing, or edema. LYMPHATICS: No peripheral lymphadenopathy. NEUROLOGICAL: Conscious, alert, and oriented times three. No focal motor or sensory deficits. PSYCHIATRIC: Mood and affect appear normal. SKIN: No skin rash, bruise, or purpuric eruption. DIAGNOSTIC DATA CBC showed white count 3.5, hemoglobin 13.8, hematocrit 39.4, platelets 133,000. ASSESSMENT 1. Mantle cell lymphoma stage IV with MIPI score of 1 and CMIPI score of low intermediate risk. TP53 mutation was negative. Patient was diagnosed in February 2017. Between February 2017 and May 2017, patient completed R-CHOP/R-DHAP/R-CHOP/R-DHAX. As the patient developed renal dysfunction after R-DHAP, cisplatin was switched to oxaliplatin. Patient achieved complete remission by PET scan done May 2017 and bone marrow biopsy was negative for involvement. On August 11, 2017, he had autologous stem cell transplant with R- BEAM conditioning and in August 2017 he was diagnosed with graft failure. His bone marrow August 2017 showed markedly hypocellular marrow, less than 5%, with nearly absent trilineage hematopoiesis with no morphologic evidence of mantle cell lymphoma. On September 16, 2017, a stem cell boost was given with 2.5 million stem cells. On October 23, 2017, patient required transfusion. He required transfusion also on day 37 and he showed signs of engraftment after that. He is doing fine currently. His platelet count is 133,000 today, trending up. His hemoglobin is 13.8 g/dL, which is stable, and white count is 3.5, which is stable. Patient received three courses of maintenance rituximab therapy and I am planning to proceed with his fourth course today. I will see him again in two months with CBC, chem panel, LDH and uric acid. 2. Back pain. Patient is using Aleve or ibuprofen for that. PLAN 1. Rituximab maintenance therapy. This will be cycle #4. 2. Patient to return in two months with CBC, chem panel, LDH, and uric acid. 3. Patient to contact us for any new concerns or complaints. MTDD
[2018-06-24 09:20] LABS: PLATELET COUNT, AUTOMATED 145 K/uL (150-450)
[2018-06-24 09:21] VITALS: BP 123/76
[~2018-07-22] VITALS: Ht 180.3 cm; Wt 80.9 kg
[~2018-07-22 08:56] MED LIST changes: +ALTEPLASE RECOMB 2 MG VIAL IVP PRN; +DEXTROSE 5%(*) 100 ML BAG 100 ML IVPB PRN; +NS(*) 0.9% 100 ML BAG 100 ML IVPB PRN; +WATER FOR INJ,STERILE 20 ML IVP PRN; +riTUXimab 500 MG/50 ML SDV 500 MG, riTUXimab 100 MG/10 ML SDV 200 MG in NS(*) 0.9% 1000... IV ONE
[2018-07-22] MEDS: LIDOCAINE/SOD BICARB 8.4% SYR ID PRN (09:15)
[2018-07-22] MEDS: NS(*) 0.9% 500 ML BAG 500 ML IV PRN (09:16)
[2018-07-22 09:26] VITALS: BP 122/80
[2018-07-22] MEDS: ACETAMINOPHEN 325 MG TAB PO PRN (09:56)
[2018-07-22] MEDS: diphenhydrAMINE 25 MG CAP PO PRN (09:56)
[2018-07-22] MEDS ORDERED: riTUXimab 500 MG/50 ML SDV 500 MG, riTUXimab 100 MG/10 ML SDV 200 MG in NS(*) 0.9% 1000... IV ONE (10:30)
[2018-07-22] MEDS: HEPARIN FLSH (PORT) 500 UN/5ML IVP PRN (13:14)
[2018-07-22 13:15] VITALS: BP 120/69
--- NOTE | 2018-07-22 18:55 | EL-TARABILY ONCOLOGY NOTE ---
EVENT DATE: July 22, 2018 DIAGNOSIS Mantle cell lymphoma, lymph nodes of multiple regions. CHIEF COMPLAINT Patient is here today for followup of his mantle cell lymphoma on maintenance rituximab therapy. HEMATOLOGY/ONCOLOGY HISTORY Patient is a 63-year-old male who has the following oncologic history: In February 2017, he presented with difficulty breathing and noticed right tonsil was significantly enlarging, so he had a CT neck which demonstrated tonsillar enlargement and cervical adenopathy. He had an excisional biopsy with bilateral tonsillectomy, and the pathology came back positive for mantle cell lymphoma, immunohistochemistry positive for CD20, cyclin D1, BCL2, CD5; negative for CD10 and BCL6. Ki-67 was 20%. FISH was positive for translocation 11;14. He had CT neck, chest, abdomen, and pelvis at the same time, which showed bilateral tonsillar enlargement, bilateral axillary, cervical, subcarinal, splenomegaly at 14 cm, bilateral inguinal lymph nodes, retroperitoneal adenopathy, so the patient was diagnosed with mantle cell lymphoma involving both tonsils with significant expansion of the right tonsil by lymphoma. Ki-67 (MIB-1) immunohistochemistry study labels 30% to 35% of the lymphoma cells. Immunohistochemistry showed that the lymphoma cells to be diffusely positive for CD20, CD5, and cyclin D1, and to be negative for CD23, CD10, CD3, and BCL6. The flow cytometry showed around 75% of the cells to be abnormal, monotypic population of B-cells, positive for lambda light chain, CD19, CD20, and CD5. TP53 mutation was negative. Bone marrow biopsy showed involvement of the bone marrow with 40% involvement by mantle cell lymphoma. PET scan done on March 24, 2017, showed numerous lymph nodes in the neck bilaterally at levels 2, 3, 4, and 5, SUV maximum of 3.4, with mildly enlarged supraclavicular nodes bilaterally with SUV 2.2. There is mild diffuse lymphadenopathy in the mediastinum, internal mammary chains, axillae, and deep to the pectoral musculature bilaterally. Largest was 3.5 cm with SUV 4.1. There was diffuse adenopathy throughout the abdomen and pelvis, all of which were mildly FDG avid. There was gastrohepatic ligament, peripancreatic, cyndie hepatis, aortocaval, and retrocaval left periaortic adenopathy in the abdomen. In the pelvis, there was diffuse bilateral iliac chain and inguinal lymph node enlargement. Maximum SUV was 4.1. Maximum size was 3.1 cm. There was unusual focal activity near the base of the penis with SUV maximum of 9. The penis was enlarged at 15.5 cm with SUV 3.8. Patient was staged with stage KELSEY mantle cell lymphoma with a MIPI score of 1 and a CMIPI score of low intermediate risk. TP53 mutation was negative. Between February 2017 and May 2017, patient completed R-CHOP/R-DHAP/R-CHOP/R-DHAX, and the patient had renal dysfunction after R-DHAP. Hence, the treatment was switched to R-DHAX, and cisplatin was switched to oxaliplatin. In May 2017, he had a PET/CT scan which showed complete metabolic remission. Bone marrow biopsy pretransplant was with involvement, meaning that the patient achieved a complete remission. On August 11, 2017, patient had an auto stem cell transplant planned with R-BEAM conditioning. In August 2017, diagnosed with graft failure, and bone marrow biopsy showed markedly hypocellular marrow, less than 5%, with nearly absent trilineage hematopoiesis, and no morphologic evidence of mantle cell lymphoma. On the August, he had a stem cell boost given, 2.5 million stem cells. On the September, which was day 37, he was transfused with red blood cells and platelets, and the patient showed evidence of engraftment after that. Patient started maintenance rituximab therapy in November 2017 with a plan of rituximab infusion every two months for three years. HISTORY OF PRESENT ILLNESS Patient is here today for followup of his mantle cell lymphoma on maintenance rituximab therapy. He is doing fine currently, and apart from having generalized pain all over, patient does not have any problem. He started to have the pain after exposed to the cold weather recently, and he feels that it takes a longer time for him to recover from pain anyway. PAST MEDICAL HISTORY 1. Lymphoma. mantle cell, multiple sites. 2. Malignant neoplasm. PAST SURGICAL HISTORY 1. Mediport placement. 2. ORIF elbow fracture. 3. ORIF tibia and fibula fractures. 4. Tonsillectomy. FAMILY HISTORY The patient's father, paternal aunt, and maternal grandfather have a history of cancer. SOCIAL HISTORY Patient is , has three children and grandchildren. 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 He drinks a beer every two to three months. Denies any abuse of illicit drugs. He smoked one pack per week for 30 years and chewed a can per week for seven years, but he quit tobacco in March 2016. CURRENT MEDICATIONS 1. Vitamin D3, 1000 units daily. 2. Vitamin B12, 1000 mcg daily. 3. Lorazepam 1 mg q.6 hours p.r.n. for anxiety or sleep. 4. Zofran 8 mg disintegrating tablet p.r.n. for nausea/vomiting. 5. Protonix 40 mg daily. 6. Compazine 10 mg q.6 hours p.r.n. for nausea/vomiting. 7. Vitamin B6, 200 mg daily. 8. Kenalog 0.1% cream p.r.n. 9. Atovaquone 10 mL for prevention of PCP. ALLERGIES No known drug allergies. REVIEW OF SYSTEMS CONSTITUTIONAL: No appetite or weight change. No fever, chills, or sweating. No recent infection. HEENT: Ears: No tinnitus or hearing problem. Nose: No nasal discharge or epistaxis. Throat: No sore throat or mouth ulcers. Eyes: No diplopia or visual changes. RESPIRATORY: No shortness of breath. No cough, expectoration, or hemoptysis. CARDIOVASCULAR: No chest pain, orthopnea, or paroxysmal nocturnal dyspnea (PND). No edema. No palpitations. GASTROINTESTINAL: No nausea or vomiting. No diarrhea or constipation. No change in bowel movements. No heartburn or swallowing difficulties. No abdominal pain. No jaundice. No hematemesis, melena, or rectal bleeding. GENITOURINARY: No hematuria or dysuria. MUSCULOSKELETAL: He has generalized pain all over after he was exposed to cold recently about two weeks ago. NEUROLOGICAL: No tingling or numbness in the hands or feet. No headaches or convulsions. HEMATOLOGIC/LYMPHATIC: No bleeding or easy bruising. No weakness or fatigue. No enlarged lymph nodes. SKIN: No skin rash or lumps. PSYCHIATRIC: No anxiety or depression. PHYSICAL EXAMINATION GENERAL: Looks stable. Well developed, well nourished, and in no acute distress. VITAL SIGNS: Blood pressure 122/80, pulse 71 per minute, respirations 16 per minute, temperature 98.4, pulse ox 93% on room air. HEENT: Head: Atraumatic. No sinus tenderness to palpation. Eyes: No icterus or conjunctivitis. Mouth and Throat: No oral thrush or mucositis. NECK: Supple. No cervical or supraclavicular lymphadenopathy. LUNGS: Clear to auscultation and percussion bilaterally. HEART: Regular rate and rhythm. No gallops, murmurs, clicks, or rubs. ABDOMEN: Soft and lax. No tenderness. No hepatosplenomegaly. No masses. EXTREMITIES: No cyanosis, clubbing, or edema. LYMPHATICS: No peripheral lymphadenopathy. NEUROLOGICAL: Conscious, alert, and oriented times three. No focal motor or sensory deficits. PSYCHIATRIC: Mood and affect appear normal. SKIN: No skin rash, bruise, or purpuric eruption. DIAGNOSTIC DATA CBC showed white count 4000, hemoglobin 14.1, hematocrit 40.6, platelets 163,000. ASSESSMENT Mantle cell lymphoma stage IV with MIPI score of 1 and CMIPI score of low intermediate risk. TP53 mutation was negative. Patient was diagnosed February 2017. Between February 2017 and May 2017, patient completed R-CHOP/R-DHAP/R-CHOP/R-DHAX. As patient developed renal dysfunction after R- DHAP, cisplatin was switched to oxaliplatin. Patient achieved complete remission by PET scan done May 2017, and bone marrow aspiration biopsy was negative for involvement. On August 11, 2017, he had autologous stem cell transplant with R-BEAM conditioning, and in August 2017, he was diagnosed with graft failure. His bone marrow August 2017 showed markedly hypocellular marrow, less than 5%, with nearly absent trilineage hematopoiesis with no morphologic evidence of mantle cell lymphoma. On September 16, 2017, a stem cell boost was given with 2.5 million stem cells. On October 23, 2017, patient required transfusion. He required transfusion also day 37, and he showed signs of engraftment after that. He is doing fine currently. His platelet count currently is normal at 163,000, hemoglobin is normal at 14.1, as well as white cell count is low normal at 4000. Patient is due today for his cycle #5 of maintenance rituximab therapy, and I am planning to proceed with that treatment. I will see him in two months from now with CBC, chemistry panel, LDH, uric acid, and I will check his blood counts on monthly intervals. PLAN 1. Rituximab maintenance therapy. This will be cycle #5. 2. Patient to return in two months with CBC, chem panel, LDH, and uric acid. 3. Repeat CBC, chem panel, LDH, uric acid q. month. 3. Patient to contact us for any new concerns or complaints. MTDD
== END 2018-08-03 ==
LOC: ONC 08:56
PROVIDERS: ATTEND Internal Medicine Hematology
DX: Z51.11 Encounter for antineoplastic chemotherapy (principal); C83.10 Mantle cell lymphoma, unspecified site; M54.9 Dorsalgia, unspecified; Z94.84 Stem cells transplant status
CPT/HCPCS: 36591; 83615; 84550; 85025; 85027; 96413; 96415; J1642; J7030; J7040; J9312; Q0163; 82040; 82247; 82310; 82374; 82435; 82565; 82947; 84075; 84132; 84155; 84295; 84450; 84460; 84520

== ENCOUNTER → 2018-08-26 | Day surgery (SDC) | payer OTHER ==
[~2018-08-26] VITALS: Ht 182.9 cm; Wt 79.8 kg
[2018-08-26] VITALS (7 sets, daily range): BP systolic 99–131; BP diastolic 70–87
[~2018-08-26] MED LIST changes: -ALTEPLASE RECOMB 2 MG VIAL IVP PRN; -DEXTROSE 5%(*) 100 ML BAG 100 ML IVPB PRN; +FAMOTIDINE 20 MG TAB PO ONE; +HEPARIN SOD LCK FLSH 100 UN/ML ONE; +KETAMINE HCL-NS 50 MG/5 ML SYR ONE; +LIDOCAINE 1%MDV(*)200 MG/20 ML 1 ML ONE; +LIDOCAINE/SOD BICARB 8.4% SYR ID ONE; +MIDAZOLAM 2 MG/2 ML VIAL IVP PRN; +NORMOSOL R SOLN(*) 1000 ML BAG 1,000 ML IV PRN; -NS(*) 0.9% 100 ML BAG 100 ML IVPB PRN; +PROPOFOL EMUL(*) 10MG/ML 20 ML 20 ML ONE; -WATER FOR INJ,STERILE 20 ML IVP PRN; -riTUXimab 500 MG/50 ML SDV 500 MG, riTUXimab 100 MG/10 ML SDV 200 MG in NS(*) 0.9% 1000... IV ONE
--- NOTE | 2018-08-26 10:11 | NUR ---
1004 PT ARRIVED TO [facility] VIA CART, SAFETY MAINTAINED, SBAR FROM Sandra LEMUS RN AND DR. EISENBERG VSS, PT DENIES REMIGIO, NAUSEA
--- NOTE | 2018-08-26 10:12 | Short(Outpt) Discharge Summary ---
Discharge Summary Reason for Hosp/Final Diag: (1) Mantle cell lymphoma Status: Chronic Hospital Course & Plan: Bone marrow aspiration/core biopsy completed without problems. Departure Discharge to: Home, Self Care Discharge Instructions Home Meds Discontinued Reported Medications Nystatin (Nystatin) 100,000 Unit/Ml Oral.susp, 5 ML QID 10/22/17 Discontinued Scripts Allopurinol (Allopurinol) 300 Mg Tablet, 300 MG PO DAILY, #30 TAB 9 Refills Prov:CELESTE MCCLELLAN RELIEF PHARMACIST-BC, ONC 03/30/17 Lorazepam (LORAZEPAM) 1 Mg Tab, 1 TAB PO Q4-6H PRN for nausea, #30 TAB 1 Refill Prov:CELESTE MCCLELLANP-BC, ONC 03/30/17 Ondansetron (ZOFRAN ODT) 8 Mg Tab.rapdis, 8 MG PO Q8H, #30 TAB 2 Refills Prov:CELESTE MCCLELLAN RELIEF PHARMACIST-SHELIA, ONC 03/30/17 Diet: Regular Activity: As Tolerated Special Instructions: You may remove the band-aid on 08/28/18, then you can shower. After showering, leave the incision open to air but leave the steristrips in place until they fall off on their own. Do not immerse the incision for 1 week. You will have some soreness/pain at the biopsy site. You can use ice, tylenol/acetaminophen, and ibuprofen/motrin if you have very significant pain. Follow up with your oncologist to discuss the results of this biopsy. Please call my office at [phone] if you have any concerns about the biopsy site. Problem Qualifiers (1) Mantle cell lymphoma: Lymphoma site: unspecified region Qualified Codes: C83.10 - Mantle cell lymphoma, unspecified site JOSELINE MARTIN MD August 26, 2018 10:12
--- NOTE | 2018-08-26 10:17 | Post Operative Progress Note ---
Post Operative Progress Note Date: August 26, 2018 Time: 10:12 Surgeon: Hali Dictation number: [id number] Anesthesia: TIVA by Dr. Rojas Pre-Op Diagnosis: Lymphoma Post-Op Diagnosis: GIOVANNI Findings: spicules seen in marrow as processed by warehouse general laborer Procedure(s): Bone marrow aspiration/core biopsy Specimen Removed:(May be N/A): Bone marrow aspirate Marrow cores x2 Complications: None Fluids: See anesthesia record Estimated Blood Loss: Minimal Date OP Note Dictated: August 26, 2018 Time OP Note Dictated: 10:13 JOSELINE MARTIN MD August 26, 2018 10:16
--- NOTE | 2018-08-26 10:25 | OPERATIVE REPORT 1 ---
EVENT DATE: August 26, 2018 SURGEON: Arash Lal MD ANESTHESIOLOGIST: Mateo Rojas MD ANESTHESIA: TIVA. PREOPERATIVE DIAGNOSIS Lymphoma. POSTOPERATIVE DIAGNOSIS Lymphoma. PROCEDURE PERFORMED Bone marrow aspiration and core biopsy. ESTIMATED BLOOD LOSS Minimal. FINDINGS This patient had spicules seen in the marrow as processed by the laboratory helper, indicating a good sample. SPECIMENS 1. Bone marrow aspirate. 2. Bone marrow cores x2. INDICATIONS This is a 63-year old gentleman who was referred to me by the [facility] for a bone marrow biopsy as he is being treated for lymphoma. DESCRIPTION OF PROCEDURE The patient is brought into the operating room and placed in the left lateral decubitus position on the gurney. The skin over his right posterior superior iliac spine was prepped and draped in sterile fashion. After he was appropriately sedated and I had palpated the appropriate landmarks to identify the posterior superior iliac spine, the skin was anesthetized with 1% lidocaine plain as was the underlying bone. I then made a small stab incision in the skin and used the aspiration needle and accessed the bone marrow cavity and aspirated about 10 mL of bone marrow into the heparinated syringe. I gave this immediately to the safety relief valve technician, who confirmed it was a good sample, so this needle was removed and the core needle was inserted and I removed about 2 cm long core samples with cortical and bone marrow and these were placed on Telfa and given to the laboratory helper. I then removed this needle and cleaned and dried the skin and then placed Steri-Strips over the stab incision followed by sterile banding. He was then placed on his back and he was brought back to the recovery area in good condition, having tolerated the procedure without any apparent problems. [facility]
--- NOTE | 2018-08-26 11:30 | NUR ---
1015 VSS, 1034 PT CHECKED ON BY Carina FERGUSON RN, STATED HE FELT LIGHTHEADED, IV RATE TURNED UP, DECLINES FOOD, DRINK 1045 PT TOLERATING CHEESE/CRACKERS, WATER 1050 PT READY TO GET UP, ORTHOSTATICS STABLE, STEADY ON FEET, D/C FROM IV TUBING, 100ML UP, ALLOWED TO DRESS, DRESSING C/D/I 1055 PT USED RESTROOM WITHOUT DIFFICULTY 1110 IV OUT, REASSESSED, D/C INSTRUCTIONS COVERED, ALL QUESTIONS ANSWERED, PT FAMILIAR WITH PROCEDURE 1120 PT OUT ON FOOT TO CAR OUTSIDE OF ER, VERY STEADY ON FEET, SELF TRANSFERRED TO VEHICLE SAFELY, ALL BELONGINGS WITH PT
== END ==
LOC: OR 00:08
PROVIDERS: ATTEND Surgery
DX: C83.10 Mantle cell lymphoma, unspecified site (principal)
CPT/HCPCS: 38222; J2001; J2250; J2704; J3490

== ENCOUNTER 2018-10-15 09:50 | Outpatient (RCR) | payer OTHER ==
[2018-08-25 09:08] VITALS: BP 109/72
[2018-08-25] MEDS: LIDOCAINE/SOD BICARB 8.4% SYR ID PRN (09:25)
[2018-08-25] MEDS: HEPARIN FLSH (PORT) 500 UN/5ML IVP PRN (09:26)
[2018-08-25 09:29] LABS: PLATELET COUNT, AUTOMATED 157 K/uL (150-450)
[2018-09-15 11:32] VITALS: BP 110/78
[2018-09-15] MEDS: NS(*) 0.9% 250 ML BAG 250 ML IVPB PRN ×2 (11:49→12:00)
[2018-09-15] MEDS: LIDOCAINE/SOD BICARB 8.4% SYR ID PRN (12:00)
[2018-09-15] MEDS: HEPARIN FLSH (PORT) 500 UN/5ML IVP PRN (14:45)
[2018-09-15 15:01] VITALS: BP 117/80
[~2018-10-15 09:50] MED LIST changes: +ACETAMINOPHEN 325 MG TAB PO PRN; +ALTEPLASE RECOMB 2 MG VIAL IVP PRN; +DEXTROSE 5%(*) 100 ML BAG 100 ML IVPB PRN; -FAMOTIDINE 20 MG TAB PO ONE; -HEPARIN SOD LCK FLSH 100 UN/ML ONE; -KETAMINE HCL-NS 50 MG/5 ML SYR ONE; -LIDOCAINE 1%MDV(*)200 MG/20 ML 1 ML ONE; -LIDOCAINE/SOD BICARB 8.4% SYR ID ONE; -MIDAZOLAM 2 MG/2 ML VIAL IVP PRN; -NORMOSOL R SOLN(*) 1000 ML BAG 1,000 ML IV PRN; +NS(*) 0.9% 100 ML BAG 100 ML IVPB PRN; -PROPOFOL EMUL(*) 10MG/ML 20 ML 20 ML ONE; +WATER FOR INJ,STERILE 20 ML IVP PRN; +diphenhydrAMINE 25 MG CAP PO PRN; +riTUXimab 500 MG/50 ML SDV 500 MG, riTUXimab 100 MG/10 ML SDV 200 MG in NS(*) 0.9% 1000... IV ONE
[2018-10-15 10:01] VITALS: BP_SYST 117; BP_SYST 128; BP_DIAS 80; BP_DIAS 93
[2018-10-15] MEDS: LIDOCAINE/SOD BICARB 8.4% SYR ID PRN (10:04)
[2018-10-15] MEDS: HEPARIN FLSH (PORT) 500 UN/5ML IVP PRN (10:04)
== END 2018-11-10 12:11 | disposition home or self-care (01) ==
LOC: SPU 09:50
PROVIDERS: ATTEND Internal Medicine Hematology
DX: Z51.11 Encounter for antineoplastic chemotherapy (principal); C83.10 Mantle cell lymphoma, unspecified site
CPT/HCPCS: 36591; 85025; 85027; 96413; 96415; 96523; J1642; J7030; J7050; J9312; Q0163; 82040; 82247; 82310; 82374; 82435; 82565; 82947; 84075; 84132; 84155; 84295; 84450; 84460; 84520